=== PATIENT | female | born 1945 | race Caucasian/White ===

== ENCOUNTER 2024-07-12 16:56 | Inpatient (IN) | payer MEDICARE, MEDICAID, SELFPAY ==
[2024-07-12] VITALS (9 sets, daily range): BP systolic 119–150; BP diastolic 62–81; PULSE 70–94; RESP 16–20; TEMP 36.4–36.6; O2SAT 92–96; BMI 18.0
--- NOTE | 2024-07-12 17:39 | PC.NURSE ---
PT BROUGHT IN BY AMBULANCE AFTER FALL AT HOME. PT WAS WALKING TO RESTROOM AND FELL WHILE WAS HOLDING HER. PT STATES THAT SHE DID HIT THE LEFT SIDE OF HER HEAD AND HIP. PT STATES THAT SHE DOES NOT USE AND ASSISTIVE DECEIVE AT HOME. PT IS ABLE TO MOVE LEGS BUT IS HAVING DIFFICULTY LIFTING LEFT LEG. DR. WALTER IN TO SEE PT.
--- NOTE | 2024-07-12 17:44 | EDRME_ITS ---
Rapid Medical Screening Exam RME Arrival date/time: 07/12/24 16:56 Chief Complaint: Fall Time Seen by Provider: 07/12/24 17:44 Vital signs: Vital Signs Temperature 97.6 F 07/12/24 17:03 Pulse Rate 94 07/12/24 17:03 Respiratory Rate 16 07/12/24 17:03 Blood Pressure 119/72 07/12/24 17:03 Pulse Oximetry (%) 92 L 07/12/24 17:03 Oxygen Delivery Method Nasal Cannula 07/12/24 17:03 Oxygen Flow Rate 2 07/12/24 17:03 RME Narrative: 79-year-old female with history of COPD (3 L home oxygen) who presents to the emergency department for ground-level fall after her legs gave out on her . She did hit her head without loss of consciousness but does complain of left- sided headache and left-sided neck pain. She was not able to get up or ambulate herself afterwards and needed 's assistance with EMS. She denies back pain or chest pain. She denies abdominal pain. She denies hip or leg pain. Focused workup was initiated and full encounter and assessment will be done by the additional provider.
--- NOTE | 2024-07-12 17:46 | XR_ITS ---
Examination: CT brain head without contrast. 2-D sagittal coronal reconstructions Date and time of exam:July 12, 2024 1859 hours INDICATIONS: Ground-level fall today with injury to the head, head pain CTDI: vol (mGy):47.5 DLP: (mGycm):869 Technique: Multiple CT axial sections of the brain have been obtained, 5 mm slice thickness. Contrast has not been administered. 2-D sagittal, coronal reconstructions have been obtained Low dose protocols were performed. One or more of the following dose reduction techniques were used; automated exposure control, adjustment of the mA and/or KV according to patient size, use of iterative reconstruction technique. Findings: No significant ventricular enlargement. Intra-axial or extra-axial hemorrhage density is not seen. No mass effect or midline shift Basal cisterns are not remarkable. Fourth ventricle is midline. Cranial vault intact. Old infarct left cerebellar hemisphere Impression: Negative for acute hemorrhage, mass effect or midline shift
--- NOTE | 2024-07-12 17:46 | EKG_ITS ---
[facility] Test Date: 2024-07-12 Pat Name: CELSO BARBOZA Department: Room: - Gender: Female Clinical Transplant Coordinator: : 1945 Requested By: Javi Bustillo Order Number: [id number] Reading MD: Javi Bustillo Measurements Intervals [place] Rate: 78 P: 64 MD: 159 QRS: -14 QRSD: 100 T: 22 QT: 398 QTc: 454 Interpretive Statements SINUS RHYTHM WITH OCCASIONAL SUPRAVENTRICULAR PREMATURE COMPLEXES ST DEVIATION AND MODERATE T-WAVE ABNORMALITY, CONSIDER LATERAL ISCHEMIA [-0.1+ mV T-WAVE IN I/aVL/V5/V6] Compared to ECG 11/01/2020 18:23:40 T-wave abnormality now present Possible ischemia now present /store/S0/[id number]/ecg/[id number].pdf
--- NOTE | 2024-07-12 17:46 | XR_ITS ---
Examination: CT cervical spine without contrast 2-D sagittal reconstructions 2-D coronal reconstructions 3-D reconstructions. Exam date and time:July 12, 2024 at 1854 hours INDICATIONS: Patient fell today with injury to the neck, neck pain CTDI:vol (mGy) 7.15 DLP: (mGycm) 147 Technique: Multiple 2 mm axial sections of the cervical spine have been obtained. The coronal and sagittal reconstructions have been obtained. 3-D reconstructions have been obtained. Low dose protocols were performed. One or more of the following dose reduction techniques were used; automated exposure control, adjustment of the mA and/or KV according to patient size, use of iterative reconstruction technique. Findings: Axial sections demonstrate intact base of the skull. C1 exhibit satisfactory relationship to the odontoid. No acute cervical vertebral body fracture seen. Alignment posterior spinous processes satisfactory. Impression: No acute cervical fracture. Heavy carotid vascular calcification, consider correlation with carotid Doppler sonography follow-up
--- NOTE | 2024-07-12 17:46 | XR_ITS ---
Examination: AP chest single view Technique one AP portable semiupright chest single view Standing spine: July 12, 2024 at 1757 hours Comparison November 01, 2020 INDICATIONS: Patient fell today with injury to the chest, chest pain FINDINGS: Normal heart size No pneumothorax Accentuation of the bronchovascular markings. Mild prominent central pulmonary arteries Clavicles or ribs appear intact IMPRESSION: No pneumothorax, pulmonary contusion or hemothorax.
[2024-07-12 18:14] LABS: Basophils # (Auto) 0.1 Thou/mm3 (0.0-0.2); Basophils % (Auto) 1 % (0-2.5); Eosinophils # (Auto) 0.1 Thou/mm3 (0.0-0.5); Eosinophils % (Auto) 1 % (0-10); Hematocrit 41.7 % (36.0-46.0); Hemoglobin 14.9 g/dL (12.0-16.0); Immature Granulocytes % (Auto) 0 % (0-0); Immature Granulocytes Auto 0.03 Thou/mm3 (0.00-0.00); Lymphocytes # (Auto) 1.7 Thou/mm3 (1.0-4.8); Lymphocytes % (Auto) 15 % (10-50); Mean Corpuscular HGB Conc 35.7 g/dl (31.0-37.0); Mean Corpuscular Volume 90 fL (80-100); Monocytes # (Auto) 1.3 Thou/mm3 (0.0-0.8); Monocytes % (Auto) 11 % (0-12); Neutrophils # (Auto) 8.5 Thou/mm3 (1.8-7.7); Neutrophils % (Auto) 72 % (37-80); Nucleated Red Blood Cell % 0 /100 WBC (0); Platelet Count 433 Thou/mm3 (140-440); RDW Standard Deviation 54.7 fL (36.4-46.3); Red Blood Count 4.66 Miln/mm3 (4.00-5.20); White Blood Count 11.8 Thou/mm3 (3.6-11.0)
--- NOTE | 2024-07-12 18:35 | PD.EDFALL ---
ED Fall Injury RME/HPI General Chief Complaint: Fall Stated Complaint: FALL Time Seen by Provider: 07/12/24 17:44 Arrival date/time: 07/12/24 16:56 RME / HPI RME / HPI Narrative: 79-year-old female with history of COPD (3 L home oxygen) who presents to the emergency department for ground-level fall after her legs gave out on her . She did hit her head without loss of consciousness but does complain of left-sided headache and left-sided neck pain. She was not able to get up or ambulate herself afterwards and needed 's assistance with EMS. She denies back pain or chest pain. She denies abdominal pain. She denies hip or leg pain. Focused workup was initiated and full encounter and assessment will be done by the additional provider. Related Data Previous Rx's ?Medication ?Instructions ?Recorded albuterol sulfate 2.5 mg/3 mL 2.5 mg (3 mL) inhalation Q4H PRN 10/08/20 (0.083 %) solution for nebulization shortness of breath or wheezing #90 mL doxycycline monohydrate 100 mg 100 mg PO BID #20 caps 11/01/20 capsule prednisone 50 mg tablet 50 mg PO QDAY #5 tabs 11/01/20 Allergies Allergy/AdvReac Type Severity Reaction Status Date / Time No Known Allergies Allergy Verified 07/12/24 17:47 Course Orders Category Date Time Status EKG (ED ONLY) *Do not use* NOW Care 07/12/24 17:[address] cervical spine wo con Stat Exams 07/12/24 17:[address] head/brain wo con Stat Exams 07/12/24 17:46 Ordered EKG (ED Only) Stat Exams 07/12/24 17:46 Draft XR chest 1V Stat Exams 07/12/24 17:46 Taken CBC Stat Lab 07/12/24 18:02 Completed CMP [Comprehensive Metabolic Panel] Stat Lab 07/12/24 18:02 Received Lactate (Lactic Acid) Stat Lab 07/12/24 18:02 Results Troponin I Stat Lab 07/12/24 18:02 Received Urinalysis Stat Lab 07/12/24 17:47 Ordered Vital Signs Vital signs: Vital Signs Temperature 97.6 F 07/12/24 17:03 Pulse Rate 94 07/12/24 17:03 Respiratory Rate 16 07/12/24 17:03 Blood Pressure 119/72 07/12/24 17:03 Pulse Oximetry (%) 92 L 07/12/24 17:03 Oxygen Delivery Method Nasal Cannula 07/12/24 17:03 Oxygen Flow Rate 2 07/12/24 17:03 Discharge Plan Prescriptions/Referrals Prescriptions/Med Rec: No Action doxycycline monohydrate 100 mg capsule 100 mg PO BID Qty: 20 0RF prednisone 50 mg tablet 50 mg PO QDAY Qty: 5 0RF albuterol sulfate 2.5 mg /3 mL (0.083 %) solution for nebulization 2.5 mg inhalation Q4H PRN (Reason: shortness of breath or wheezing) Qty: 90 2RF Patient/Caregiver Discharge Instructions Print Language: Syriac
--- NOTE | 2024-07-12 18:38 | PD.EDFALL ---
ED Fall Injury RME/HPI General Chief Complaint: Altered Mental Status Stated Complaint: FALL Time Seen by Provider: 07/12/24 17:44 Source: EMS Arrival date/time: 07/12/24 16:56 Mode of arrival: EMS Limitations: no limitations RME / HPI RME / HPI Narrative: 79-year-old female with history of COPD (3 L home oxygen) who presents to the emergency department for ground-level fall after her legs gave out on her . She did hit her head without loss of consciousness but does complain of left-sided headache and left-sided neck pain. She was not able to get up or ambulate herself afterwards and needed 's assistance with EMS. She denies back pain or chest pain. She denies abdominal pain. She denies hip or leg pain. Focused workup was initiated and full encounter and assessment will be done by the additional provider. Dr. Hernandez?s Main ED Evaluation: The patient is a 79-year-old female with a medical history significant for asthma, COPD, and enrollment in hospice care for the past three years, who was brought to the emergency department via EMS following a fall at home. According to the patient and her , the event began earlier today when the patient experienced weakness in her left leg. She first noted difficulty after attempting to use the restroom, where she was unable to rise from a seated position due to this weakness. Her assisted her back to bed without incident at that time. However, when she later needed to use the restroom again, her provided support to help her ambulate. During this attempt, her left leg reportedly gave out, resulting in a fall. The patient struck her head during the fall and now reports a persistent headache localized to the left side of her head, along with left-sided neck pain. She denies any numbness, tingling, or sensory deficits. She also denies any pain or weakness in her right upper extremity. There has been no loss of consciousness reported. The patient?s last known well time is documented as 3:00 PM today. She denies experiencing any chest pain, palpitations, or shortness of breath. Her pain and discomfort appear to be localized to the regions affected by the fall. Stroke alert initiated at 18:44. The patient is enrolled in hospice care, having been under hospice services for the past three years. However, her care plan is not limited to comfort care or end-of-life measures. Related Data Previous Rx's ?Medication ?Instructions ?Recorded albuterol sulfate 2.5 mg/3 mL 2.5 mg (3 mL) inhalation Q4H PRN 10/08/20 (0.083 %) solution for nebulization shortness of breath or wheezing #90 mL aspirin 81 mg tablet,delayed 81 mg PO QDAY #30 tabs 07/15/24 release (Adult Aspirin Regimen) atorvastatin 40 mg tablet (Lipitor) 40 mg PO QPM #30 tabs 07/15/24 cephalexin 500 mg capsule 500 mg PO BID #8 caps 07/15/24 fluticasone propionate 115 2 puff inhalation BID #12 grams 07/15/24 mcg-salmeterol 21 mcg/actuation HFA inhaler (Advair HFA) folic acid 1 mg tablet 1 mg PO QDAY #30 tabs 07/15/24 potassium chloride 10 mEq 10 meq PO QDAY #30 tabs 07/15/24 tablet,extended release prednisone 5 mg tablet See Taper PO TID #91 tabs 07/15/24 sulfasalazine 500 mg tablet 0.5 g PO Q6H #120 tabs 07/15/24 Allergies Allergy/AdvReac Type Severity Reaction Status Date / Time No Known Allergies Allergy Verified 07/12/24 17:47 Review of Systems Review of Systems Systems Reviewed: All systems reviewed, normal except as documented Past Medical History Past Medical History CARDIAC: Negative Cardiac Disorders or Congestive Heart Failure RESPIRATORY: Positive Chronic Obstructive Pulmonary Disease (COPD) and Asthma (COPD) GASTROINTESTINAL: Positive Crohn's Disease GENITOURINARY: Negative Renal Disease (pending results) ENDOCRINE: Negative Diabetes Mellitus Type 1 or Diabetes Mellitus Type 2 HEMATOLOGIC: Negative Sickle Cell Disease OTHER HISTORY: Negative Cancer Surgical History SURGICAL: Positive Hysterectomy and Tubal Ligation Social History SMOKING STATUS: Former smoker SUBSTANCE USE: does not use ED Exam General Limitations: Present no limitations General appearance: Present alert and in no apparent distress Head Head exam: Present atraumatic and other (No palpable bumps, lumps, or midline scar) Eye Eye exam: Present normal appearance, PERRL and EOMI ENT ENT exam: Present normal exam, normal oropharynx and mucous membranes moist Neck Neck exam: Present normal inspection, full ROM and trachea midline Chest Chest inspection: Present normal inspection and symmetric chest wall rise Respiratory Respiratory exam: Present normal lung sounds bilaterally Cardiovascular Cardiovascular exam: Present regular rate, normal rhythm and normal heart sounds Abdominal Exam Abdominal exam: Present soft and normal bowel sounds Extremities Exam Extremities exam: Present normal inspection, full ROM and other (Motor strength is 5/5 in all extremities except for the left leg, where the patient is unable to lift the leg but demonstrates full extension at the ankle.) Back Exam Back exam: Present normal inspection and full ROM Neurological Exam Neurological exam: Present alert, oriented X3, CN II-XII intact and other (No facial droop observed. No dysphasia or aphasia noted; speech is clear and coherent. No sensory deficits to light touch.) Psychiatric Psychiatric exam: Present normal affect and normal mood Skin Skin exam: Present warm, dry, intact and normal color Course Course Course Narrative: CXR is ordered for determining etiology of mild chest pain. Quality Measures none Orders Category Date Time Status COVID-19 Screening Questionnaire NOW Care 07/12/24 21:24 Completed Decision to Admit X1 Care 07/12/24 21:24 Completed EKG (ED ONLY) *Do not use* NOW Care 07/12/24 17:46 Completed In and Out Catheter X1 Care 07/12/24 20:[address] angio stroke protocol Stat Exams 07/12/24 18:[address] cervical spine wo con Stat Exams 07/12/24 17:[address] head/brain wo con Stat Exams 07/12/24 17:46 Completed EKG (ED Only) Stat Exams 07/12/24 17:46 Draft XR chest 1V Stat Exams 07/12/24 17:46 Completed CBC Stat Lab 07/12/24 18:02 Completed CMP [Comprehensive Metabolic Panel] Stat Lab 07/12/24 18:02 Completed Lactate (Lactic Acid) Stat Lab 07/12/24 18:02 Completed Lactic Acid, 3 HR Stat Lab 07/12/24 21:22 Completed Troponin I Stat Lab 07/12/24 18:02 Completed Urinalysis Stat Lab 07/12/24 20:24 Completed Urine Culture Stat Lab 07/12/24 20:24 Completed Aspirin Chew Med 07/12/24 21:23 Discontinued 81 mg PO X1 ONE cefTRIAXone [Rocephin] 1,000 mg Med 07/12/24 21:23 Discontinued Sodium Chloride 0.9% [Ns] 50 ml IV X1 Vital Signs Vital signs: Vital Signs Temperature 97.6 F 07/12/24 17:03 Pulse Rate 94 07/12/24 17:03 Respiratory Rate 16 07/12/24 17:03 Blood Pressure 119/72 07/12/24 17:03 Pulse Oximetry (%) 92 L 07/12/24 17:03 Oxygen Delivery Method Nasal Cannula 07/12/24 17:03 Oxygen Flow Rate 2 07/12/24 17:03 Procedures -ED EKG Interpretation #1: Additional EKG comment: EKG manually interpreted by me on 07/12/2024 at 18:06 hours reveals normal sinus rhythm (NSR) with a heart rate of 78 bpm, no ST depressions, QTc of 454 ms, and no evidence of STEMI. Fall MDM Narrative MDM Narrative:: 79-year-old female with a history of asthma, COPD, and hospice care who presented to the emergency department following a fall at home. The fall was preceded by left leg weakness, causing her to lose balance and strike her head. She reported a persistent left-sided headache and neck pain but denies numbness, tingling, sensory changes, or right upper extremity weakness. Stroke alert was initiated at 18:44. On examination, the patient had full motor strength in all extremities except for the left leg, where she was unable to lift the leg but could extend at the ankle. No facial droop, dysphasia, or aphasia was noted. Sensory examination was normal. Hospitalist Team: Case discussed, including the patient's clinical course, imaging results, teleneurology's recommendations and treatment plan. The hospitalist team has accepted the patient for admission. Scribe Attestation: Juan Ramon Freeman am scribing for and in the presence of Dr. Hernandez. Provider Notation: Although this document has been carefully reviewed, there may still be some phonetic and other typographical errors. These errors are purely grammatical due to imperfections in the software program and should not be construed in any way to compromise the substance of the patient's medical care during this visit. Patient data External records reviewed:: [facility] previous records and EMS form Clinical information provided by:: patient and EMS Social determinants that could affect healthcare access:: none Patient has the following chronic illnesses:: See PMH How is presenting disease/condition affected by chronic disease/condition?: exacerbated by Evaluation data The following diagnostics were reviewed and interpreted by me:: lab results, radiology exam(s) and EKG tracing(s) Lab and/or radiology exams considered but not ordered:: None Interpretation Summary: I personally reviewed the radiology data and agree with the radiologist's interpretation. Examination: AP chest single view Standing spine: July 12, 2024 at 1757 hours Comparison November 01, 2020 INDICATIONS: Patient fell today with injury to the chest, chest pain FINDINGS: Normal heart size No pneumothorax Accentuation of the bronchovascular markings. Mild prominent central pulmonary arteries Clavicles or ribs appear intact IMPRESSION: No pneumothorax, pulmonary contusion or hemothorax. Dictated By: Fidel Gupta MD Examination: CT cervical spine without contrast Exam date and time:July 12, 2024 at 1854 hours INDICATIONS: Patient fell today with injury to the neck, neck pain Findings: Axial sections demonstrate intact base of the skull. C1 exhibit satisfactory relationship to the odontoid. No acute cervical vertebral body fracture seen. Alignment posterior spinous processes satisfactory. Impression: No acute cervical fracture. Heavy carotid vascular calcification, consider correlation with carotid Doppler sonography follow-up Dictated By: Fidel Gupta MD Examination: CT brain head without contrast. Date and time of exam:July 12, 2024 1859 hours INDICATIONS: Ground-level fall today with injury to the head, head pain Findings: No significant ventricular enlargement. Intra-axial or extra-axial hemorrhage density is not seen. No mass effect or midline shift Basal cisterns are not remarkable. Fourth ventricle is midline. Cranial vault intact. Old infarct left cerebellar hemisphere Impression: Negative for acute hemorrhage, mass effect or midline shift Dictated By: Fidel Gupta MD Examination: CTA carotids with intravenous contrast, CTA brain, head with intravenous contrast. Exam date and time: July 12, 2024 9007 hours INDICATIONS: Stroke alert, onset focal neurologic deficit today Findings: Possible septal edema in the lung linton No significant common carotid carotid bifurcation or internal carotid artery stenoses Dominant left vertebral artery with no critical stenoses No cerebral large vessel arterial occlusions, thrombus, dissection or cerebral aneurysm IMPRESSION: No significant neck arterial stenoses No cerebral large vessel arterial occlusions thrombus dissection or cerebral aneurysm Dictated By: Fidel Gupta MD Medications / Prescriptions Medications or Prescriptions considered but not ordered:: None Medication administrations:: Medication Administration History Discontinued Medications Acetaminophen (Acetaminophen 325 Mg Tablet) 650 mg PO Q6H PRN PRN Reason: Fever >101.5 Stop: 08/11/24 22:18 Albuterol/Ipratropium (Albuterol/Ipratropium (Duoneb) Rt Damaris 3 Ml Nebu) 3 ml INH Q4H PRN PRN Reason: SHORTNESS OF BREATH OR WHEEZE Stop: 08/11/24 22:18 Last Admin: 07/14/24 06:17 Dose: 3 ml Documented By: DWIGHT Aspirin (Aspirin 81 Mg Chew) 81 mg PO X1 ONE Stop: 07/12/24 21:24 Last Admin: 07/12/24 22:03 Dose: 81 mg Documented By: ROB Aspirin (Aspirin 325 Mg Tablet) 325 mg PO X1 ONE Stop: 07/12/24 22:38 Last Admin: 07/12/24 23:01 Dose: 325 mg Documented By: CHRYSTAL Aspirin (Aspirin Ec 81 Mg Tabec) 81 mg PO QDAY [facility] Stop: 08/12/24 08:59 Last Admin: 07/15/24 09:34 Dose: 81 mg Documented By: Admin: 07/14/24 08:09 Dose: 81 mg Documented By: Admin: 07/13/24 09:24 Dose: 81 mg Documented By: SHANEKA Atorvastatin Calcium (Atorvastatin Calcium 20 Mg Tablet) 40 mg PO HS [facility] Stop: 08/12/24 20:59 Last Admin: 07/14/24 22:04 Dose: 40 mg Documented By: Admin: 07/13/24 20:46 Dose: 40 mg Documented By: BRANDON Calcium Carbonate (Calcium Carbonate 600 Mg Tablet) 600 mg PO X1 ONE Stop: 07/12/24 22:41 Last Admin: 07/13/24 01:01 Dose: 600 mg Documented By: CHYRSTAL Heparin Sodium (Porcine) (Heparin Sod Inj 5000 Unit/Ml Vial) 5,000 unit SC Q12H [facility] Stop: 07/27/24 08:59 Last Admin: 07/15/24 09:35 Dose: 5,000 unit Documented By: MR Co-signed By: MANASA Admin: 07/14/24 22:04 Dose: 5,000 unit Documented By: RAVINDRA Co-signed By: MARIA ESTHER Admin: 07/14/24 08:11 Dose: 5,000 unit Documented By: TM Co-signed By: YANELI Admin: 07/13/24 20:46 Dose: 5,000 unit Documented By: BRANDON Co-signed By: Admin: 07/13/24 09:28 Dose: 5,000 unit Documented By: SHANEKA Co-signed By: EVER Ceftriaxone Sodium 1,000 mg/ (Sodium Chloride) 50 mls @ 100 mls/hr IV X1 ONE Stop: 07/12/24 21:52 Last Admin: 07/12/24 22:03 Dose: 100 mls/hr Documented By: KG Ceftriaxone Sodium/Dextrose (Rocephin/D5w 1gm Iv Premix) 50 mls @ 100 mls/hr IV HS ZI Stop: 07/20/24 20:59 Last Admin: 07/14/24 22:03 Dose: 100 mls/hr Documented By: Infusion: 07/13/24 21:17 Dose: Infused Documented By: Admin: 07/13/24 20:47 Dose: 100 mls/hr Documented By: BRANDON Potassium Chloride (Kcl Ivpb) 10 meq in 100 mls @ 100 mls/hr IV Q1H ZI Stop: 07/13/24 02:26 Last Admin: 07/13/24 02:46 Dose: Not Given Documented By: BRANDON Non-Admin Reason: Discontinued Admin: 07/13/24 02:46 Dose: Not Given Documented By: BRANDON Non-Admin Reason: Discontinued Admin: 07/13/24 02:46 Dose: Not Given Documented By: BRANDON Non-Admin Reason: Discontinued Lactated Ringer's (Lactated Ringers) 500 mls @ 50 mls/hr IV .Q10H ZI Stop: 07/13/24 01:40 Last Admin: 07/13/24 02:12 Dose: Not Given Documented By: LB Non-Admin Reason: Discontinued Magnesium Sulfate (Magnesium Sulfate Ivpb) 4 gm in 50 mls @ 12.5 mls/hr IV X1 ONE Stop: 07/13/24 04:15 Last Admin: 07/13/24 01:01 Dose: 12.5 mls/hr Documented By: CHRYSTAL Lactated Ringer's (Lactated Ringers) 1,000 mls @ 50 mls/hr IV .Q20H ONE Stop: 07/13/24 22:07 Last Admin: 07/13/24 02:12 Dose: 50 mls/hr Documented By: CHRYSTAL Potassium Chloride (Kcl Ivpb) 10 meq in 100 mls @ 100 mls/hr IV Q1H ZI Stop: 07/13/24 11:42 Last Admin: 07/13/24 20:32 Dose: Not Given Documented By: BRANDON Non-Admin Reason: Discontinued Potassium Phosphate 22.5 mmol/ (Sodium Chloride) 507.5 mls @ 82.778 mls/hr IV X1 ONE Stop: 07/13/24 13:55 Last Infusion: 07/13/24 18:14 Dose: Infused Documented By: Admin: 07/13/24 09:23 Dose: 82.778 mls/hr Documented By: SHANKEA Potassium Chloride (Kcl Ivpb) 10 meq in 100 mls @ 100 mls/hr IV Q1H ZI Stop: 07/13/24 23:59 Last Admin: 07/13/24 20:32 Dose: Not Given Documented By: BRANDON Non-Admin Reason: Discontinued Lactobacillus Rhamnosus (Lactobacillus Rhamnosus 1 Cap) 1 cap PO BID ZI Stop: 08/13/24 20:59 Last Admin: 07/15/24 09:35 Dose: 1 cap Documented By: Admin: 07/14/24 22:04 Dose: 1 cap Documented By: RAVINDRA Methylprednisolone Sodium Succinate (Methylprednisolone Sod Succ 40 Mg Vial) 40 mg IVP Q12HR ZI Stop: 07/20/24 20:29 Last Admin: 07/15/24 09:34 Dose: 40 mg Documented By: Admin: 07/14/24 22:03 Dose: 40 mg Documented By: Admin: 07/14/24 08:09 Dose: 40 mg Documented By: Admin: 07/13/24 20:46 Dose: 40 mg Documented By: BRANDON Potassium Chloride (Potassium Chloride 10% 20 Meq/15 Ml Udc) 40 meq PO X1 ONE Stop: 07/12/24 22:28 Last Admin: 07/12/24 22:55 Dose: 40 meq Documented By: CHRYSTAL Potassium Chloride (Potassium Chloride 10% 20 Meq/15 Ml Udc) 20 meq PO X1 ONE Stop: 07/13/24 00:16 Last Admin: 07/13/24 02:46 Dose: Not Given Documented By: BRANDON Non-Admin Reason: Discontinued Potassium Chloride (Potassium Chloride 10% 20 Meq/15 Ml Udc) 40 meq PO X1 ONE Stop: 07/13/24 00:39 Last Admin: 07/13/24 00:59 Dose: 40 meq Documented By: CHRYSTAL Potassium Chloride (Potassium Chloride 20 Meq Tabcr) 40 meq PO X1 ONE Stop: 07/13/24 01:31 Last Admin: 07/13/24 02:18 Dose: 40 meq Documented By: CHRYSTAL Potassium Chloride (Potassium Chloride 20 Meq Tabcr) 40 meq PO X1 ONE Stop: 07/13/24 03:01 Last Admin: 07/13/24 03:42 Dose: 40 meq Documented By: BRANDON Potassium Chloride (Potassium Chloride 10% 20 Meq/15 Ml Udc) 40 meq PO X1 ONE Stop: 07/13/24 16:09 Last Admin: 07/13/24 16:18 Dose: 40 meq Documented By: SHANEKA Potassium Chloride (Potassium Chloride 20 Meq Tabcr) 40 meq PO X1 ONE Stop: 07/13/24 16:09 Last Admin: 07/13/24 16:19 Dose: 40 meq Documented By: SHANEKA Potassium Chloride (Potassium Chloride 20 Meq Tabcr) 40 meq PO X1 ONE Stop: 07/13/24 20:01 Last Admin: 07/13/24 20:46 Dose: 40 meq Documented By: BRANDON Potassium Chloride (Potassium Chloride 20 Meq Tabcr) 40 meq PO X1 ONE Stop: 07/13/24 22:31 Last Admin: 07/13/24 22:25 Dose: 40 meq Documented By: BRANDON Potassium Chloride (Potassium Chloride 20 Meq Tabcr) 40 meq PO X1 ONE Stop: 07/15/24 09:49 Last Admin: 07/15/24 10:17 Dose: 40 meq Documented By: Potassium Phos/Sodium Phos ([facility] 1 Packet (1.5 Gm)) 1 packet PO X1 ONE Stop: 07/13/24 00:17 Last Admin: 07/13/24 01:00 Dose: 1 packet Documented By: CHRYSTAL Fluticasone/Salmeterol (Fluticasone/Salmeterol 100/50 14 Dose Inh) 1 puff INH BIDRT ZI Stop: 08/11/24 22:44 Last Admin: 07/15/24 06:28 Dose: 1 puff Documented By: Admin: 07/14/24 18:47 Dose: 1 puff Documented By: Admin: 07/14/24 06:08 Dose: 1 puff Documented By: Admin: 07/13/24 19:26 Dose: Not Given Documented By: AH Non-Admin Reason: Medication Not Available Comments: pharmacy contacted, medication to be delivered before next scheduled treatment. Admin: 07/13/24 11:34 Dose: Not Given Documented By: EA Non-Admin Reason: Manual Charge by Anesthesia Admin: 07/12/24 22:58 Dose: Not Given Documented By: NE Non-Admin Reason: Medication Not Available Sulfasalazine (Sulfasalazine 500 Mg Tablet) 1,000 mg PO BID ZI Stop: 08/12/24 20:59 Last Admin: 07/15/24 09:34 Dose: 1,000 mg Documented By: Admin: 07/14/24 22:04 Dose: 1,000 mg Documented By: Admin: 07/14/24 08:09 Dose: 1,000 mg Documented By: Admin: 07/13/24 20:46 Dose: 1,000 mg Documented By: VR As above, if any Consultations Consultation(s) initiated? (list below): Yes Consultation #1 (Physician, Specialty, Details): Case discussed with Teleneurology, Dr. Yusra Zaman. Based on the clinical presentation, per Dr. 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 However, a small cortical stroke could not be entirely ruled out at this time. A CT head was reviewed and showed no evidence of acute hemorrhage or core infarction. Given that the patient?s last known well time exceeded the 4.5-hour window, she is not a candidate for thrombolytic therapy (tPA). Dr. Zaman recommends initiating or continuing aspirin 325 mg daily to reduce further risk of ischemic progression and admission for close monitoring. Time: 19:38 Consultation #2 (Physician, Specialty, Details): Hospitalist team made aware of the patient?s HPI, PMHx, lab and/or radiology results. Treatment plan was discussed. Accepts patient for admission. Time: 21:22 Diagnosis Fall Differential Diagnosis: other (Stroke, UTI, Hip pain, Musculoskeletal pain, DVT) Most likely diagnosis given after review of the tests above:: See clinical impression Admission Indicated Admission indicated?: indicated Admission Request Was there a request for admission?: Yes Admission Attestation Admission request attestation: Discussed case with [] from Hospitalist service regarding admission. Discussed patients ED course, exam findings, labs, and radiology results. The Hospitalist [agrees,declines] to accept the patient for admission. Disposition Plan Disposition Plan: Admit Critical Care Time Critical Care Time Critical Care Time: Yes Total Critical Care Time (min.): 45 Attestation: The high probability of sudden, clinically significant deterioration in the patient?s condition required the highest level of my preparedness to intervene urgently. ? The services I provided to this patient were to treat and/or prevent clinically significant deterioration. Services included the following: chart data review, reviewing nursing notes and/or old charts, documentation time, professional services consultant collaboration regarding findings and treatment options, medication orders and management, direct patient care, vital sign assessments and ordering, interpreting and reviewing diagnostic studies and lab tests. ? Aggregate critical care time includes only time during which I was engaged in work directly related to the patient?s care, as described above, whether at bedside or elsewhere in the Emergency Department. It did not include time spent performing other reported procedures or the services of residents, students, nurses or physician assistants. Discharge Plan Plan Patient Disposition: Admit Acute Care w/in Hospital Patient condition on transfer: Stable Problem List Clinical Impression: Fall, Headache
--- NOTE | 2024-07-12 18:46 | XR_ITS ---
Examination: CTA carotids with intravenous contrast CTA brain, head with intravenous contrast. 2-D sagittal, coronal reconstructions. 3-D reconstructions. Exam date and time: July 12, 2024 9007 hours INDICATIONS: Stroke alert, onset focal neurologic deficit today CTDI: vol (mGy) 14.4 DLP: (mGycm) 441 Technique: Multiple CTA axial brain, head carotid images post intravenous contrast injection 75 cc, [id number]. 2-D sagittal, coronal reconstructions. 3-D reconstructions, 3-D post processing including vascular maximum intensity projection images. Low dose protocols were performed. One or more of the following dose reduction techniques were used; automated exposure control, adjustment of the mA and/or KV according to patient size, use of iterative reconstruction technique. Findings: Possible septal edema in the lung linton No significant common carotid carotid bifurcation or internal carotid artery stenoses Dominant left vertebral artery with no critical stenoses No cerebral large vessel arterial occlusions, thrombus, dissection or cerebral aneurysm IMPRESSION: No significant neck arterial stenoses No cerebral large vessel arterial occlusions thrombus dissection or cerebral aneurysm
[2024-07-12 18:55] LABS: Alanine Aminotransferase 11 U/L (10-49); Albumin, Serum 3.3 gm/dL (3.4-4.8); Albumin/Globulin Ratio 0.9 (1.2-2.2); Alkaline Phosphatase 117 U/L (46-116); Anion Gap 15 (7-16); Aspartate Amino Transferase 19 U/L (0-34); BUN/Creatinine Ratio 4 Ratio (12-20); Bilirubin,Total 0.5 mg/dL (0.3-1.2); Blood Urea Nitrogen < 5 mg/dL (9-23); Calcium 7.4 mg/dL (8.3-10.6); Carbon Dioxide 18.7 mMol/L (20.0-31.0); Chloride 107 mMol/L (98-107); Creatinine (Component) 1.4 mg/dL (0.6-1.3); Estimated Creatinine Clearance 26.8 mL/min (>60); Globulin 3.8 gm/dL (2.3-3.5); Glucose 124 mg/dL (74-106); Osmolality,Calculated 279 (275-295); Sodium 141 mMol/L (136-145); Total Protein 7.1 gm/dL (5.7-8.2); Troponin I < 0.020 ng/mL (0.0-0.045); eGFR 38 See Note
[2024-07-12 18:57] LABS: Potassium 2.1 mMol/L (3.4-5.1)
--- NOTE | 2024-07-12 19:30 | PC.NURSE ---
Pt back from ct-scan, Dr. Yusra Zaman, neurologist, interviewed and assessed pt via tele neuro website.
--- NOTE | 2024-07-12 19:37 | ESCONSULT_ITS ---
Tele Neuro Consultation Consultation Date 07/12/24 Most Recent Vital Signs Last Vital Signs Temp 97.9 F 07/12/24 18:32 Pulse 77 07/12/24 18:32 Resp 16 07/12/24 18:32 BP 129/67 07/12/24 18:32 Pulse Ox 93 L 07/12/24 18:32 O2 Del Method Nasal Cannula 07/12/24 18:32 O2 Flow Rate 2 07/12/24 18:32 Consultation Narrative [facility] Tele[facility]rology Consult [facility] Patient Name:???Fina Welch Date of :???1945 Identification Number:??? Date of Service:???07/12/2024 18:46:26 Diagnosis:?M62.81 - Generalized Muscle Weakness Impression: ?1. The patient does appear to have weakness of the left arm and leg without any other deficit. 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 CT of the head is unremarkable, do not appreciate any large vessel occlusion on review of CTA head and neck, however, official read is pending. As long as official read is in agreement that no large vessel occlusion is present, she will require admission for MRI of the brain, transthoracic echocardiogram, fasting lipid panel, hemoglobin A1c. Recommend starting full strength aspirin. Our recommendations are outlined below. Recommendations: ? Stroke/Telemetry Floor ? Neuro Checks ? Bedside Swallow Eval ? DVT Prophylaxis ? IV Fluids, Normal Saline ? Head of Bed 30 Degrees ? Euglycemia and Avoid Hyperthermia (PRN Acetaminophen) ? Initiate or continue Aspirin 325 MG daily ? Antihypertensives PRN if Blood pressure is greater than 220/120 or there is a concern for End organ damage/contraindications for permissive HTN. If blood pressure is greater than 220/120 give labetalol PO or IV or Vasotec IV with a goal of 15% reduction in BP during the first 24 hours. Sign Out: ? Discussed with Emergency Department Provider Advanced Imaging: CTA Head and Neck Completed. LVO:No Patient in not a candidate for FESTUS Metrics: Last Known Well: 07/12/2024 10:00:00 Dispatch Time: 07/12/2024 18:46:26 Arrival Time: 07/12/2024 16:56:00 Initial Response Time: 07/12/2024 18:55:57Symptoms: weakness, fall. Initial patient interaction: 07/12/2024 19:18:03 NIHSS Assessment Completed: 07/12/2024 19:28:00Patient is not a candidate for Thrombolytic. Thrombolytic Medical Decision: 07/12/2024 19:28:00Patient was not deemed candidate for Thrombolytic because of following reasons: LKW outside 4.[address] head showed no acute hemorrhage or acute core infarct. Primary Provider Notified of Diagnostic Impression and Management Plan on: 07/12/2024 19:38:23 History of Present Illness:Patient is a 79 year old Female. Patient was brought by EMS for symptoms of weakness, fall. The patient is a 79 year old woman with a history of COPD on 3L home oxygen presenting after a GLF when her legs gave out on her. She did not hit her head, no LOC. She does have a left sided headache and neck pain. Her K is low at 2.1 with a normal sodium. Her creatinine is 1.4 up from baseline 1.3. The patient reports that she walked to go to the bathroom around 10 AM and she felt like she couldn't get up off the toilet. She is a difficult historian, however , she is weaker on the left side, which she states is new today. She has no history of stroke does not take any medications or have any chronic health conditions with the exception of her COPD. She is technically on hospice, but is been on hospice for 3 years and is not comfort care. Past Medical History: Other PMH:? COPD, crohns disease in remission Medications: No Anticoagulant use? No Antiplatelet use Reviewed EMR for current medications Allergies:? Reviewed Social History: Drug Use: No Family History: There is no family history of premature cerebrovascular disease pertinent to this consultation ROS : 14 Points Review of Systems was performed and was negative except mentioned in HPI. Past Surgical History: There Is No Surgical History Contributory To Today?s Visit Examination: BP(129/67),?Pulse(77),?Blood Glucose(124) 1A: Level of Consciousness - Alert; keenly responsive?+ 0 1B: Ask Month and Age - Both Questions Right?+ 0 1C: Blink Eyes & Squeeze Hands - Performs Both Tasks?+ 0 2: Test Horizontal Extraocular Movements - Normal?+ 0 3: Test Visual Munguia - No Visual Loss?+ 0 4: Test Facial Palsy (Use Grimace if Obtunded) - Normal symmetry?+ 0 5A: Test Left Arm Motor Drift - Drift, but doesn't hit bed?+ 1 5B: Test Right Arm Motor Drift - No Drift for 10 Seconds?+ 0 6A: Test Left Leg Motor Drift - No Effort Against Baldwin?+ 3 6B: Test Right Leg Motor Drift - No Drift for 5 Seconds?+ 0 7: Test Limb Ataxia (FNF/Heel-Mckeon) - No Ataxia?+ 0 8: Test Sensation - Normal; No sensory loss?+ 0 9: Test Language/Aphasia - Normal; No aphasia?+ 0 10: Test Dysarthria - Normal?+ 0 11: Test Extinction/Inattention - No abnormality?+ 0 NIHSS Score:?4 Pre-Morbid Modified Hermilo Scale:2 Points = Slight disability; unable to carry out all previous activities, but able to look after own affairs without assistance Spoke with :?ED This consult was conducted in real time using interactive audio and video technology. Patient was informed of the technology being used for this visit and agreed to proceed. Patient located in hospital and provider located at home/office setting. Patient is being evaluated for possible acute neurologic impairment and high probability of imminent or life-threatening deterioration. I spent total of 35 minutes providing care to this patient, including time for face to face visit via telemedicine, review of medical records, imaging studies and discussion of findings with providers, the patient and/or family. Dr Yusra Zaman [facility] For Inpatient follow-up with [facility] physician please call [facility] at . As we are not an outpatient service for any post hospital discharge needs please contact the hospital for assistance. If you have any questions for the [facility] physicians or need to re consult for clinical or diagnostic changes please contact us via [facility] at .
[2024-07-12 20:34] LABS: Collection Type, Urine Clean Catch
[2024-07-12 20:53] LABS: Bacteria,Urine Rare; Bilirubin,Urine Negative (Negative); Blood,Urine Trace (Negative); Clarity,Urine Turbid (Clear/Hazy); Color,Urine Yellow (Lt Yel-Yel); Glucose, Urine Negative (Negative); Ketones,Urine Negative (Negative); Leukocyte Esterase,Urine Positive (Negative); Nitrite,Urine Positive (Negative); Protein,Urine 1+ (Neg - Trace); RBC,Urine 4 /hpf (0-3); Squamous Epithelial Cell,Urine < 1 /hpf (0-5); Urobilinogen,Urine Negative mg/dL (0.0-1.0); WBC,Urine 199 /hpf (0-5)
[2024-07-12 21:08] LABS: Reflex Lactate? Y
[2024-07-12 21:31] LABS: Lactic Acid, 3 HR 1.5 mMol/L (0.4-2.0)
[2024-07-12] MEDS: ASPIRIN 81 MG CHEW PO (22:03)
[2024-07-12] MEDS: POTASSIUM CHLORIDE 10% 20 MEQ/15 ML UDC 40 MEQ PO (22:55)
--- NOTE | 2024-07-12 22:56 | ESHP_ITS ---
Documentation for date of: 07/12/24 HPI History of Present Illness Chief complaint: Left-sided weakness History of present illness: Ms. Welch is a 79-year-old female with history of COPD (3L home oxygen), Crohn's disease, hypertension and dizziness who presented to [facility] on 07/12/2024 with chief complaint of ground-level fall after her legs gave out on her . Patient reports hitting her head on the left side, according to the patient she was on the toilet and she could not get up, her helped her to the bed, after that she was able to ambulate again, yet again after a while she complained of significant weakness, has been was able to assist her, yet she reported falling down hitting her head. Patient currently endorses weakness in left arm and left leg, has no other deficits, denies of any stroke in the past, reports that the left-sided weakness is new. Patient reports history of chronic dizziness in the past. Patient denies any loss of consciousness, seizure-like activity. Otherwise patient does complain of 8 bowel movements a day for the last year, reports loose stools, endorsed that she was diagnosed with Crohn disease in 2005, denies taking any medication currently, denies following up with GI specialist currently. Of note patient's potassium on admission 2.1, possible GI loss. Does complain of poor appetite, reports drinking enough water. Patient reports increased frequency of urination, some discomfort while urination and endorses a history of UTIs in the past. Patient has been on hospice for the last 3 years for COPD after she was discharged from hospital. Denies any respiratory distress currently. Does use inhaler as needed at home. ED Course: ED Vitals: On presentation BP 119/72, pulse 94, respiratory rate 16, temp 97.6, O2 sat 92 on 2 L nasal cannula ED Labs:ED labs significant for WBC 11.8, neutrophil 8.5 sodium 141, potassium 2.1, bicarb 18.7, creatinine 1.4, GFR 38, glucose 124, lactate 3.0, calcium 8, alk phos 117, albumin 3.3, globulin 3.8 UA significant for nitrate positive, leukocyte esterase positive, bacteria rare. ED Imaging:CT cervical spine significant for heavy carotid vascular calcification chest x-ray negative CT head negative CTA head and neck negative for large vessel occlusion ED Treatment:Patient was given aspirin 81 mg x 1, ceftriaxone x 1 in ED. teleneuro consulted in ED, stroke alert was called. Patient admitted for further workup for left-sided weakness, CVA workup. Review of Systems Review of Systems Narrative Review of Systems: ROS: -CONSTITUTIONAL: Denies weight loss, fever and chills. Complains of dizziness. -HEENT: Denies changes in vision and hearing. -RESPIRATORY: Denies SOB and cough. Positive for COPD, on 3 L oxygen at home. -CV: Denies palpitations and Chest Pain. -GI: Denies abdominal pain, nausea, vomiting,constipation and positive for diarrhea. -: Positive for dysuria and increased urinary frequency -MSK: Positive for of left-sided weakness. -SKIN: Denies rash and pruritus. -NEUROLOGICAL: Denies headache and syncope. -PSYCHIATRIC: Denies recent changes in mood. Denies anxiety and depression. Past Medical History Past Medical History Comments PMH COMMENT: PMH: Positive for COPD, hypertension, Crohn's disease, dizziness PSHx: Positive for appendectomy, gallbladder surgery, exploratory laparotomy, ?bowel resection Allergies: No known allergies Social history: -Smoking: Positive for heavy smoking in past, quit 7 years ago -Alcohol Use: Positive for alcohol use in past, reports no current alcohol use -Illicit Drug Use: Denies -Occupation: Retired -Martial Status: lives with , independent ADLs denies using cane/walker Family History: Positive for Crohn's disease in sister Exam Vital Signs Temp Pulse Resp BP Pulse Ox O2 Del Method O2 Flow Rate 97.8 F 73 19 150/81 H 94 L Nasal Cannula 2 07/12/24 19:39 07/12/24 22:52 07/12/24 22:52 07/12/24 22:00 07/12/24 22:52 07/12/24 21:00 07/12/24 22:52 Narrative Exam Physical Exam General: Awake and in no acute distress. Conversational and non-toxic appearing. HEENT: Normocephalic, atraumatic, mucous membranes dry. Heart: Regular rate and rhythm, no murmurs. Lungs: Mild wheezing, no crackles. Abdomen: Soft, nondistended, nontender, positive bowel sounds. Neurologic: Alert and oriented x3, decreased movement, weakness noted in left upper and lower extremity Extremities: No edema. Skin: No rash or ecchymoses. Results: Labs 07/12/24 18:02 07/12/24 21:22 Labs: Short CBC 07/12/24 Range/Units 18:02 WBC 11.8 H (3.6-11.0) Thou/mm3 Hgb 14.9 (12.0-16.0) g/dL Hct 41.7 (36.0-46.0) % Plt Count 433 (140-440) Thou/mm3 BMP 07/12/24 18:02 Sodium 141 Potassium 2.1 L* Chloride 107 Carbon Dioxide 18.7 L BUN < 5 L Creatinine 1.4 H Glucose 124 H Calcium 7.4 L Cardiac Enzymes 07/12/24 Range/Units 18:02 Troponin I < 0.020 (0.0-0.045) ng/mL Liver Function 07/12/24 Range/Units 18:02 Total Bilirubin 0.5 (0.3-1.2) mg/dL AST 19 (0-34) U/L ALT 11 (10-49) U/L Alkaline Phosphatase 117 H (46-116) U/L Albumin 3.3 L (3.4-4.8) gm/dL Urine 07/12/24 Range/Units 20:24 Urine Color Yellow (Lt Yel-Yel) Urine Clarity Turbid A (Clear/Hazy) Urine pH 6.0 (5.0-7.0) Ur Specific Edison 1.030 (1.001-1.035) Urine Protein 1+ A (Neg - Trace) Urine Glucose (UA) Negative (Negative) Quality Measures Quality Measures none Advance care planning discussed with:: patient Medications Home Medications and Allergies Allergies Allergy/AdvReac Type Severity Reaction Status Date / Time No Known Allergies Allergy Verified 07/12/24 17:47 Visit Medications Acetaminophen (Acetaminophen 325 Mg Tablet) 650 mg PO Q6H PRN PRN Reason: Fever >101.5 Stop: 08/11/24 22:18 Albuterol/Ipratropium (Albuterol/Ipratropium (Duoneb) Rt Damaris 3 Ml Nebu) 3 ml INH Q4H PRN PRN Reason: SHORTNESS OF BREATH OR WHEEZE Stop: 08/11/24 22:18 Aspirin (Aspirin Ec 81 Mg Tabec) 81 mg PO QDAY ZI Stop: 08/12/24 08:59 Heparin Sodium (Porcine) (Heparin Sod Inj 5000 Unit/Ml Vial) 5,000 unit SC Q12H [facility] Stop: 07/27/24 08:59 Ceftriaxone Sodium/Dextrose (Rocephin/D5w 1gm Iv Premix) 50 mls @ 100 mls/hr IV QDAY [facility] Stop: 07/19/24 22:25 Potassium Chloride (Kcl Ivpb) 10 meq in 100 mls @ 100 mls/hr IV Q1H [facility] Stop: 07/13/24 02:26 Lactated Ringer's (Lactated Ringers) 500 mls @ 50 mls/hr IV .Q10H [facility] Stop: 07/13/24 08:39 Fluticasone/Salmeterol (Fluticasone/Salmeterol 100/50 14 Dose Inh) 1 puff INH BIDRT [facility] Stop: 08/11/24 22:44 Discontinued Medications Aspirin (Aspirin 81 Mg Chew) 81 mg PO X1 ONE Stop: 07/12/24 21:24 Last Admin: 07/12/24 22:03 Dose: 81 mg Aspirin (Aspirin 325 Mg Tablet) 325 mg PO X1 ONE Stop: 07/12/24 22:38 Calcium Carbonate (Calcium Carbonate 600 Mg Tablet) 600 mg PO X1 ONE Stop: 07/12/24 22:41 Ceftriaxone Sodium 1,000 mg/ (Sodium Chloride) 50 mls @ 100 mls/hr IV X1 ONE Stop: 07/12/24 21:52 Last Admin: 07/12/24 22:03 Dose: 100 mls/hr Potassium Chloride (Potassium Chloride 10% 20 Meq/15 Ml Udc) 40 meq PO X1 ONE Stop: 07/12/24 22:28 Assessment & Plan Plan Assessment and plan: Summary: Ms. Welch is a 79-year-old female with history of COPD (3L home oxygen), Crohn's disease, hypertension and dizziness who presented to [facility] on 07/12/2024 with chief complaint of ground-level fall after her legs gave out on her . Patient admitted for further workup for left- sided weakness, CVA workup. # Left-sided weakness # Dizziness # CVA workup # Status post ground-level fall Patient endorsed that her legs gave out, currently complains of left-sided weakness, has no history of stroke or residual deficits. Patient independent in ADLs denies using any walker/cane. Patient denies seizure-like activity, loss of consciousness, did endorse hitting head. On physical exam left-sided weakness noted, teleneuro was consulted in ED NIHSS 4. Plan: -Aspirin 325 mg x 1, aspirin 81 mg in a.m. -Ordered MRI stroke protocol -Ordered echo with bubble study -Consulted neurology, appreciate recommendations -Bedside nurse swallow screen -Neurochecks every 4 hours -Head of bed 30 degrees -Referral to speech therapy -Referral to physical therapy -Permissive hypertension for 24 hours -Tylenol as needed -Follow lipid panel, A1c, TSH, free T4 in a.m. # Urinary tract infection #?DAVID on CKD # Leukocytosis # Lactic acidosis Patient complains of urinary discomfort, increased frequency On admission creatinine 1.4, GFR 38, lactate 3.0. UA significant for nitrate positive, leukocyte esterase positive, bacteria rare. Plan: -IV ceftriaxone daily -Follow urine culture -500 cc LR, 50 cc/h -Follow renal panel in a.m. -Avoid nephrotoxic meds -Renally dose medications # Crohn's disease # Hypokalemia Patient reports history of Crohn's disease, reports being diagnosed in 2005, currently not on any medications, does not follow GI specialist currently Reports average 8 bowel movements every day, small, no blood. Patient's potassium 2.1 on presentation in ED Plan: -Replace potassium -Currently monitor if patient acute exacerbation, consider IV steroids /- rectal steroids -Ordered ESR CRP in a.m. -Consulted GI, appreciate recommendations -Ordered stool culture, fecal calprotectin, stool WBC -Patient has minimally elevated alk phos, monitor, concern of PSC -Ordered hep panel, follow-up with GI, consider TBT, TPMT prior to initiation of therapy # Electrolyte abnormalities # Hypomagnesemia # Hypophosphatemia # Hypocalcemia -Correct and replace electrolytes as needed #COPD Patient has extensive history of smoking in the past, was diagnosed with COPD. Patient on 3 L oxygen at home Plan: -Fluticasone/salmeterol twice daily -Supplemental oxygen as needed -DuoNeb every 4 hours as needed #Hypertension Patient has history of hypertension, on amlodipine at home Plan: -Permissive hypertension for 24 hours, will use labetalol as needed if more than 220/120 DVT prophylaxis: Heparin every 12 hours GI prophylaxis: Not indicated Diet: N.p.o., pending nurse swallow screen Lines: Peripheral IV Code status: DNR/DNI Case discussed with Attending Dr. Jarrett. Deisy Fuentes PGY1 Disclaimer: This note was dictated by speech recognition. Minor errors in operations support analyst may be present due to voice recognition software. Attending Provider Attestation/Addendum I attest that I was physically present for the evaluation, physical examination, lab and imaging review of the patient with the residents. I discussed the case with the residents and agree with the findings and plans of care as documented above. Patient is a 79 years old female with past medical history of COPD on 3 L home nasal cannula, Crohn's disease, hypertension and dizziness who presented to the ED with complaint of ground-level fall due to lower limb weakness. While using the restroom, patient was unable to sit up from her commode getting help from her . Patient stated that she had hit her head on the left side. At bedside, patient stated her symptoms are better but still has weakness on her left arm and left leg. Denies any numbness or tingling sensation. Denies any slurring of his speech or facial droop. Patient also stated that she has been having frequent urination. She usually have 8 loose bowel movements per day, small amounts. She denied following with GI and does not take any medication for her Crohn's disease. Patient is also on hospice care, she had difficulty breathing about 3 years back due to her COPD when she was started on the hospice care and has been being followed by them until now. In the ED, vital signs are stable, saturating well on 2 L nasal cannula. Lab results showed WBC of 11.8, potassium 2.1, creatinine 1.4, lactate 3.0. Urinalysis was significant for positive nitrite, leukocyte esterase, 199 WBCs and rare bacteria. Head CT was done which was negative for acute hemorrhage, mass effect or midline shift. CTA head and neck did not show any significant neck arterial stenosis. Cervical spine CT was negative for acute fractures. Chest x-ray was negative for acute disease. Teleneuro was consulted for stroke alert. Started patient on aspirin, statin. Ordered MRI, echocardiography, neurochecks, PT, ST. We will start IV Rocephin for UTI. Gentle IV hydration for possible DAVID versus DAVID on CKD. We will also obtain GI consult regarding Crohn's disease as patient have been having multiple bowel movements with electrolyte imbalances. We will replete her electrolytes as needed. Started patient on supplemental oxygen and DuoNebs for her COPD. Discussed in detail about her CODE STATUS, hospice care and goals of care, patient stated she would like aggressive medical management but wished to be DNR/DNI. Andrew Jarrett MD
[2024-07-12] MEDS: Aspirin 325 MG TABLET PO (23:01)
[2024-07-12 23:13] LABS: Albumin, Serum 3.4 gm/dL (3.4-4.8); Anion Gap 14 (7-16); BUN/Creatinine Ratio 4 Ratio (12-20); Blood Urea Nitrogen < 5 mg/dL (9-23); Calcium 7.5 mg/dL (8.3-10.6); Carbon Dioxide 19.2 mMol/L (20.0-31.0); Chloride 108 mMol/L (98-107); Creatinine (Component) 1.2 mg/dL (0.6-1.3); Estimated Creatinine Clearance 31.3 mL/min (>60); Glucose 93 mg/dL (74-106); Osmolality,Calculated 278 (275-295); Phosphorous 1.9 mg/dL (2.4-5.1); Sodium 141 mMol/L (136-145); eGFR 46 See Note
[2024-07-12 23:16] LABS: Potassium 1.9 mMol/L (3.4-5.1)
[2024-07-12 23:35] LABS: Magnesium 1.5 mg/dL (1.6-2.6)
[2024-07-13] VITALS (11 sets, daily range): BP systolic 114–139; BP diastolic 62–88; PULSE 69–98; RESP 14–118; TEMP 36.1–37; O2SAT 92–98; BMI 12.0
--- NOTE | 2024-07-13 | XR_ITS ---
Examinations: MRI Brain without intravenous contrast. MRA brain without intravenous contrast. MRA carotids without intravenous contrast 3-D vascular reconstructions Date and time of exam: July 13, 2024 0824 hours INDICATIONS: Stroke alert April 11, 2025, onset focal neurologic deficit including left arm left leg weakness Technique: Multiple axial and sagittal images of the brain have been obtained MRA brain carotid images without contrast obtained, including 3-D postprocessing, vascular maximum intensity projection images Findings: Sellaturcica is not enlarged. The optic chiasm and infundibular stalk are not remarkable. Prepontine and interpeduncular cisterns are not enlarged. No localized enlargement of the medulla or lexi. Fourth ventricle and cerebellar tonsils normal in position. Subacute hemorrhage is not seen. Fourth ventricle is midline. Mass in the cerebellopontine angle region is not evident. 7th and 8th nerve complexes exhibits symmetry. Globes are symmetrical with no retro-orbital mass. Increased white matter signal prominent Diffusion-weighted images demonstrate no focus of restricted diffusion Mass-effect upon the ventricular system is not identified. MRA carotid images no significant carotid stenoses. MRA brain images no large vessel occlusions Impression: Negative for acute hemorrhage mass effect or midline shift No acute infarct Old infarct left cerebellar hemisphere Prominent chronic microvascular white matter change
--- NOTE | 2024-07-13 00:39 | PC.NURSE ---
Pt refused IV potassium Dr. Byrd informed. Meds potassium, K phos, mag not available, nrsg supp informed.
[2024-07-13] MEDS: POTASSIUM CHLORIDE 10% 20 MEQ/15 ML UDC 40 MEQ PO ×2 (00:59→16:18)
[2024-07-13] MEDS: NAPH,KPH MBDB 1 PACKET (1.5 GM) PO (01:00)
[2024-07-13] MEDS: CALCIUM CARBONATE 600 MG TABLET PO (01:01)
[2024-07-13] MEDS: Magnesium Sulfate 4 GM Ivpb 4 GM/50 ML BAG IV (01:01)
--- NOTE | 2024-07-13 01:50 | PC.NURSE ---
Pt had bm. pt was changed, new hilda, new kate. redness on coccyx, RN made aware. barrier foam put in place. pt turned to left side.
[2024-07-13] MEDS: RINGERS LACTATED 1000 ML 1,000 ML 50 ML IV (02:12)
[2024-07-13] MEDS: POTASSIUM CHLORIDE 20 mEq TABCR 40 MEQ PO ×5 (02:18→22:25)
[2024-07-13 06:23] LABS: Basophils # (Auto) 0.1 Thou/mm3 (0.0-0.2); Basophils % (Auto) 1 % (0-2.5); Eosinophils # (Auto) 0.2 Thou/mm3 (0.0-0.5); Eosinophils % (Auto) 1 % (0-10); Hematocrit 42.3 % (36.0-46.0); Hemoglobin 15.4 g/dL (12.0-16.0); Immature Granulocytes % (Auto) 0 % (0-0); Immature Granulocytes Auto 0.06 Thou/mm3 (0.00-0.00); Lymphocytes # (Auto) 1.9 Thou/mm3 (1.0-4.8); Lymphocytes % (Auto) 12 % (10-50); Mean Corpuscular HGB Conc 36.4 g/dl (31.0-37.0); Mean Corpuscular Hemoglobin 32.3 pg (25.0-35.0); Mean Corpuscular Volume 89 fL (80-100); Monocytes # (Auto) 1.5 Thou/mm3 (0.0-0.8); Monocytes % (Auto) 10 % (0-12); Neutrophils # (Auto) 11.4 Thou/mm3 (1.8-7.7); Neutrophils % (Auto) 75 % (37-80); Nucleated Red Blood Cell % 0 /100 WBC (0); Platelet Count 415 Thou/mm3 (140-440); RDW Standard Deviation 53.1 fL (36.4-46.3); Red Blood Count 4.77 Miln/mm3 (4.00-5.20); White Blood Count 15.2 Thou/mm3 (3.6-11.0)
[2024-07-13 06:28] LABS: INR 1.1 (0.9-1.3); Partial Thromboplastin Time 24.8 Seconds (22.0-36.0); Prothrombin Time 11.5 Seconds (9.0-12.2)
[2024-07-13 06:48] LABS: Stool for WBCs Negative (Negative)
[2024-07-13 06:49] LABS: Sed Rate (ESR) 26 mm/hr (0-30)
[2024-07-13 06:52] LABS: Glucose Estimated Average 111 mg/dL (80-131); Hemoglobin A1C 5.5 % Hgb (4.8-6.0)
[2024-07-13 07:06] LABS: Alanine Aminotransferase 9 U/L (10-49); Albumin, Serum 3.3 gm/dL (3.4-4.8); Albumin/Globulin Ratio 0.9 (1.2-2.2); Alkaline Phosphatase 119 U/L (46-116); Anion Gap 15 (7-16); Aspartate Amino Transferase 26 U/L (0-34); BUN/Creatinine Ratio 4 Ratio (12-20); Bilirubin,Total 0.5 mg/dL (0.3-1.2); Blood Urea Nitrogen < 5 mg/dL (9-23); Calcium 8.1 mg/dL (8.3-10.6); Calcium (Corrected) 8.7 mg/dL (8.5-10.1); Chloride 110 mMol/L (98-107); Creatinine (Component) 1.2 mg/dL (0.6-1.3); Estimated Creatinine Clearance 31.3 mL/min (>60); Free T4 (Free Thyroxine) 1.18 ng/dL (0.89-1.76); Globulin 3.6 gm/dL (2.3-3.5); Glucose 105 mg/dL (74-106); Magnesium 2.8 mg/dL (1.6-2.6); Osmolality,Calculated 285 (275-295); Phosphorous 1.8 mg/dL (2.4-5.1); Sodium 145 mMol/L (136-145); Thyroid Stimulating Hormone 4.99 uIU/mL (0.55-4.78); Total Protein 6.9 gm/dL (5.7-8.2); eGFR 46 See Note
[2024-07-13 07:21] LABS: C-Reactive Protein 0.6 mg/dL (0.0-0.9); Cholesterol 99 mg/dL (132-200); HDL Cholesterol 50 mg/dL (40-60); LDL Cholesterol,Calculated 33 mg/dL (0-130); Triglycerides 80 mg/dL (30-150)
[2024-07-13 07:35] LABS: Hepatitis A Antibody IgM Non Reactive (Non React); Hepatitis B Core Antibody IgM Non Reactive (Non React); Hepatitis B Surface Antigen Non Reactive (Non React); Hepatitis C Antibody Non Reactive (Non React)
[2024-07-13 07:37] LABS: Potassium 2.6 mMol/L (3.4-5.1)
[2024-07-13] MEDS: POTASSIUM PHOS 22.5 MMOL in SODIUM CHLORIDE 0.9% 500 ML 500 ML 82.778 MMOL IV (09:23)
[2024-07-13] MEDS: ASPIRIN EC 81 MG TABEC PO (09:24)
[2024-07-13] MEDS: HEPARIN SOD INJ 5000 UNIT/ML VIAL SC ×2 (09:28→20:46)
--- NOTE | 2024-07-13 11:54 | ESPR_ITS ---
<Statement entered by Gomez Kerns MD - 07/13/24 17:17> Senior Resident Attestation: I supervised/discussed management plan with international sales manager physician Dr. Pollack, and was involved in the care of this patient. I personally saw and examined the patient and discussed the assessment and plan with the entire medicine team, including my attending. I agree with the assessment and plan as documented. Patient does not have any new neurological deficits. Ongoing stroke workup including head CT, CTA angio and MRI of the brain are negative for acute stroke. Patient's care was discussed with attending physician, Dr. Graham. Gomez Kerns MD PGY-2. Documentation for date of: 07/13/24 Subjective Subjective Interval history: 07/13/2024: Patient examined at bedside today. No acute overnight events. Patient reports that she has never had the symptoms before including her weakness. She denies having any stroke history. Does endorse that she has been having poor oral intake and has been on hospice for 3 years. She is only been eating chicken bone broth for a while. She is on home oxygen 3 L. Says that she only had hypokalemia 1 time, and will refuse to have IV potassium. She does endorse having 5-8 bowel movements a day due to her Crohn's disease. No other complaints at this time. Exam Vital Signs Temp Pulse Resp BP Pulse Ox O2 Del Method O2 Flow Rate 98.6 F 80 118 H 131/77 H 93 L Room Air 3 07/13/24 08:00 07/13/24 08:10 07/13/24 08:10 07/13/24 08:00 07/13/24 08:10 07/13/24 08:00 07/13/24 08:10 Narrative Exam General: AAOx3, NAD, lying down in bed, pt appears to have some hair thinning, looks older than she is, anorexic HEENT: Dry mucous membranes, conjunctiva clear, EOMI, PERRLA pupillary reflex intact bilaterally Cardiovascular: S1, S2, radial pulses +2 bilat, RRR Pulmonary: + wheezing heard in both lung [place], on 2L NC GI: No tenderness to light or deep palpitation, no guarding, rigidity, rebound tenderness or distension Extremities: No presence of trace or pitting edema in lower extremities bilaterally, dorsalis pedis pulses +2 bilaterally Neuro: AAOx3, patient appears to have some left-sided motor weakness in upper and lower extremity, possible resting tremor Psych: Cooperative Objective Labs 07/13/24 05:33 07/13/24 11:58 Labs: Laboratory Results - last 24 hr 07/12/24 07/12/24 07/12/24 18:02 20:24 21:22 WBC 11.8 H RBC 4.66 Hgb 14.9 Hct 41.7 MCV 90 MCH 32.0 MCHC 35.7 RDW Std Deviation 54.7 H Plt Count 433 Neut % (Auto) 72 Lymph % (Auto) 15 [place] % (Auto) 11 Eos % (Auto) 1 Baso % (Auto) 1 Neut # (Auto) 8.5 H Lymph # (Auto) 1.7 [place] # (Auto) 1.3 H Eos # (Auto) 0.1 Baso # (Auto) 0.1 Immature Gran # (Auto) 0.03 H Absolute Nucleated RBC 0.00 Immature Gran % 0 Nucleated RBC % 0 ESR PT INR APTT Sodium 141 141 Potassium 2.1 L* 1.9 L* Chloride 107 108 H Carbon Dioxide 18.7 L 19.2 L Anion Gap 15 14 BUN < 5 L < 5 L Creatinine 1.4 H 1.2 Estim Creat Clear Calc 26.8 L 31.3 L eGFR 38 L 46 L BUN/Creatinine Ratio 4 L 4 L Glucose [address] Glu mg/dL Hemoglobin A1c Calculated Osmolality 279 278 Lactic Acid 3.0 H 1.5 Calcium 7.4 L 7.5 L Corrected Calcium 8.0 L 8.0 L Phosphorus 1.9 L Magnesium 1.5 L Total Bilirubin 0.5 AST 19 ALT 11 Alkaline Phosphatase 117 H Troponin I < 0.020 C-Reactive Prot, Quant Total Protein 7.1 Albumin 3.3 L 3.4 Globulin 3.8 H Albumin/Globulin Ratio 0.9 L Triglycerides Cholesterol LDL Cholesterol, Calc HDL Cholesterol Cholesterol/HDL Ratio TSH Free T4 Ur Collection Type Clean Catch Urine Color Yellow Urine Clarity Turbid A Urine pH 6.0 Ur Specific [place] 1.030 Urine Protein 1+ A Urine Glucose (UA) Negative Urine Ketones Negative Urine Blood Trace Urine Nitrite Positive Urine Bilirubin Negative Urine Urobilinogen (Auto) Negative Ur Leukocyte Esterase Positive Urine RBC 4 H Urine WBC 199 H Ur Squamous Epith Cells < 1 Urine Bacteria Rare Stool for White Cells Hepatitis A IgM Ab Hep Bs Antigen Hep B Core IgM Ab Hepatitis C Antibody 07/13/24 07/13/24 03:10 05:33 WBC 15.2 H RBC 4.77 Hgb 15.4 Hct 42.3 MCV 89 MCH 32.3 MCHC 36.4 RDW Std Deviation 53.1 H Plt Count 415 Neut % (Auto) 75 Lymph % (Auto) 12 [place] % (Auto) 10 Eos % (Auto) 1 Baso % (Auto) 1 Neut # (Auto) 11.4 H Lymph # (Auto) 1.9 [place] # (Auto) 1.5 H Eos # (Auto) 0.2 Baso # (Auto) 0.1 Immature Gran # (Auto) 0.06 H Absolute Nucleated RBC 0.00 Immature Gran % 0 Nucleated RBC % 0 ESR 26 PT 11.5 INR 1.1 APTT 24.8 Sodium 145 Potassium 2.6 L* D Chloride 110 H Carbon Dioxide 20.0 Anion Gap 15 BUN < 5 L Creatinine 1.2 Estim Creat Clear Calc 31.3 L eGFR 46 L BUN/Creatinine Ratio 4 L Glucose [address] Glu mg/dL 111 Hemoglobin A1c 5.5 Calculated Osmolality 285 Lactic Acid Calcium 8.1 L Corrected Calcium 8.7 Phosphorus 1.8 L Magnesium 2.8 H Total Bilirubin 0.5 AST 26 ALT 9 L Alkaline Phosphatase 119 H Troponin I C-Reactive Prot, Quant 0.6 Total Protein 6.9 Albumin 3.3 L Globulin 3.6 H Albumin/Globulin Ratio 0.9 L Triglycerides 80 Cholesterol 99 L LDL Cholesterol, Calc 33 HDL Cholesterol 50 Cholesterol/HDL Ratio 2.0 L TSH 4.99 H Free T4 1.18 Ur Collection Type Urine Color Urine Clarity Urine pH Ur Specific [place] Urine Protein Urine Glucose (UA) Urine Ketones Urine Blood Urine Nitrite Urine Bilirubin Urine Urobilinogen (Auto) Ur Leukocyte Esterase Urine RBC Urine WBC Ur Squamous Epith Cells Urine Bacteria Stool for White Cells Negative Hepatitis A IgM Ab Non Reactive Hep Bs Antigen Non Reactive Hep B Core IgM Ab Non Reactive Hepatitis C Antibody Non Reactive Quality Measures Quality Measures none Advance care planning discussed with:: patient Assessment & Plan Assessment Current Active Medications: Generic Name Dose Route Start Last Admin Trade Name Freq PRN Reason Stop Dose Admin Acetaminophen 650 mg 07/12/24 22:19 Acetaminophen 325 Mg Tablet PO 08/11/24 22:18 Q6H PRN Fever >101.5 Albuterol/Ipratropium 3 ml 07/12/24 22:19 Albuterol/Ipratropium (Duoneb) Rt [place] 3 Ml Nebu INH 08/11/24 22:18 Q4H PRN SHORTNESS OF BREATH OR WHEEZE Aspirin 81 mg 07/13/24 09:00 07/13/24 09:24 Aspirin Ec 81 Mg Tabec PO 08/12/24 08:59 81 mg QDAY ZI Administration Atorvastatin Calcium 40 mg 07/13/24 21:00 Atorvastatin Calcium 20 Mg Tablet PO 08/12/24 20:59 HS ZI Heparin Sodium (Porcine) 5,000 unit 07/13/24 09:00 07/13/24 09:28 Heparin Sod Inj 5000 Unit/Ml Vial SC 07/27/24 08:59 5,000 unit Q12H ZI Administration Ceftriaxone Sodium/Dextrose 50 mls @ 100 mls/hr 07/13/24 21:00 Rocephin/D5w 1gm Iv Premix IV 07/20/24 20:59 HS ZI Lactated Ringer's 1,000 mls @ 50 mls/hr 07/13/24 02:08 07/13/24 02:12 Lactated Ringers IV 07/13/24 22:07 50 mls/hr .Q20H ONE Administration Potassium Phosphate 22.5 mmol/ 507.5 mls @ 82.778 mls/hr 07/13/24 07:48 07/13/24 09:23 Sodium Chloride IV 07/13/24 13:55 82.778 mls/hr X1 ONE Administration Fluticasone/Salmeterol 1 puff 07/12/24 22:45 07/13/24 11:34 Fluticasone/Salmeterol 100/50 14 Dose Inh INH 08/11/24 22:44 Not Given BIDRT ZI Plan Assessment Ms. Welch is a 79-year-old female with history of COPD (3L home oxygen), Crohn's disease, hypertension and dizziness who presented to [facility] on 07/12/[facility]24 with chief complaint of ground-level fall after her legs gave out on her . Patient admitted for further workup for left-sided weakness, CVA workup. 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 Stroke recrudescence #Status post ground-level fall Patient endorsed that her legs gave out, currently complains of left-sided weakness, has no history of stroke or residual deficits. Patient independent in ADLs denies using any walker/cane. Patient denies seizure-like activity, loss of consciousness, did endorse hitting head. On physical exam left-sided weakness noted, teleneuro was consulted in ED NIHSS 4. MRI shows old infarct left cerebral hemisphere, however no acute mass effect, hemorrhage or ischemia Patient did deny having a stroke before, however TIA may still be in the differential Patient may also be experiencing stroke recrudescence as patient is having infection and electrolyte abnormalities Considering patient's weakness is one-sided this may not all be due to electrolyte abnormalities including hypokalemia TSH 4.94, T41.18, total cholesterol 99, LDL 33 A1c 5.5 Plan: -Continue aspirin 81 ?Continue with Lipitor 40 mg ?Follow-up echo with bubble study -Consulted neurology, appreciate recommendations -Bedside nurse swallow screen -Neurochecks every 4 hours -Head of bed 30 degrees -Referral to speech therapy -Referral to physical therapy -Tylenol as needed #Symptomatic hypokalemia #Electrolyte abnormalities #Hypophosphatemia Patient does endorse poor oral intake Will need to reassess if patient is having other electrolyte abnormality for other reasons and GI losses as patient's potassium was low as 1.9 Plan: ? Repleting with oral phosphate as patient will not take IV phosphate ? Gave potassium phosphate ? Follow-up with renal panel # Urinary tract infection #?DAVID on CKD # Leukocytosis # Lactic acidosis Patient complains of urinary discomfort, increased frequency On admission creatinine 1.4, GFR 38, lactate 3.0. UA significant for nitrate positive, leukocyte esterase positive, bacteria rare. Cr 1.2 today Encourage oral intake Plan: -IV ceftriaxone daily -Follow urine culture # Hx of Crohn's disease Patient reports history of Crohn's disease, reports being diagnosed in 2005, currently not on any medications, does not follow GI specialist currently Reports average 8 bowel movements every day, small, no blood. ESR CRP unremarkable Will consider for patient to be on sulfasalazine or mesalamine and oral budesonide at some point Plan: ?Consulted GI, appreciate recommendations ?Follow-up stool culture, fecal calprotectin, stool WBC ?Follow-up C. difficile #Hx of COPD Patient has extensive history of smoking in the past, was diagnosed with COPD. Patient on 3 L oxygen at home Plan: -Continue Advair twice daily -Supplemental oxygen as needed -DuoNeb every 4 hours as needed #Hypertension Patient has history of hypertension, on amlodipine at home Plan: -Will resume home blood pressure medicines after first 24 hours #Health Maintenance Disposition: Telemetry DVT prophylaxis: Heparin every 12 hours GI prophylaxis: None indicated at this time Diet: Cardiac CODE STATUS:DNR/DNI Patient seen and care discussed with my senior resident, Dr. Kerns , and my attending physician, Dr. Santos Pollack, PGY-1
[2024-07-13 12:38] LABS: Albumin, Serum 3.3 gm/dL (3.4-4.8); Anion Gap 13 (7-16); BUN/Creatinine Ratio 5 Ratio (12-20); Blood Urea Nitrogen < 5 mg/dL (9-23); Calcium 7.7 mg/dL (8.3-10.6); Calcium (Corrected) 8.3 mg/dL (8.5-10.1); Carbon Dioxide 20.1 mMol/L (20.0-31.0); Chloride 109 mMol/L (98-107); Estimated Creatinine Clearance 37.6 mL/min (>60); Glucose 117 mg/dL (74-106); Osmolality,Calculated 281 (275-295); Phosphorous 3.2 mg/dL (2.4-5.1); Sodium 142 mMol/L (136-145); eGFR 57 See Note
[2024-07-13 12:40] LABS: Potassium 2.6 mMol/L (3.4-5.1)
[2024-07-13 19:29] LABS: Albumin, Serum 3.1 gm/dL (3.4-4.8); Anion Gap 13 (7-16); BUN/Creatinine Ratio 5 Ratio (12-20); Blood Urea Nitrogen < 5 mg/dL (9-23); Calcium 7.3 mg/dL (8.3-10.6); Carbon Dioxide 20.3 mMol/L (20.0-31.0); Chloride 109 mMol/L (98-107); Estimated Creatinine Clearance 41.8 mL/min (>60); Glucose 127 mg/dL (74-106); Osmolality,Calculated 282 (275-295); Phosphorous 4.2 mg/dL (2.4-5.1); Potassium 3.2 mMol/L (3.4-5.1); Sodium 142 mMol/L (136-145); eGFR 57 See Note
--- NOTE | 2024-07-13 20:25 | ESCONSULT_ITS ---
HPI Data of Consult Requesting Physician: Yasmin Graham MD Primary Care Provider: Physician No Primary/Family Consult Narrative Reason for consult: Chronic persistent diarrhea History of present illness: 79-year-old female admitted with a ground-level fall and left-sided motor weakness I been consulted for multiple stool at least 6-8 stools a day she has been living on chicken broth and not been able to eat She has a history of COPD on 3 L nasal cannula essential hypertension previous CVA and now left-sided motor weakness hypokalemia and hypomagnesemia Her potassium was 2.6 on admission which is come up to 3.2 WBC count was 15.2 with a hemoglobin hematocrit 15.4 and 42.3 Platelet count was 4 and 15,000 She is not on any medication for the Crohn's ileitis that she has history of 2005 patient had a bowel obstruction requiring exploratory laparotomy with resection of a part of the small intestine and colon according to her and pathological diagnosis was Crohn's disease Surgery was done by Dr. Polo Patient is also postcholecystectomy cc:: cc: Yasmin Graham MD Review of Systems Review of Systems Systems Reviewed: All systems reviewed, normal except as documented Past Medical History Surgical History OTHER SURGICAL HX: As in the history of present illness Meds Home Medications and Allergies Allergies Allergy/AdvReac Type Severity Reaction Status Date / Time No Known Allergies Allergy Verified 07/12/24 17:47 Exam Vital Signs Temp Pulse Resp BP Pulse Ox O2 Del Method O2 Flow Rate 98.5 F 89 21 H 139/81 H 94 L Nasal Cannula 3 07/13/24 16:00 07/13/24 19:27 07/13/24 19:27 07/13/24 16:00 07/13/24 19:27 07/13/24 16:00 07/13/24 19:27 Constitutional Comments: Chronically ill-appearing Routine Respiratory Exam Comments: Normal to auscultation Routine Abdominal Exam Comments: Soft nontender positive bowel sounds Results Labs 07/13/24 05:33 07/13/24 19:03 Labs: Short CBC 07/13/24 Range/Units 05:33 WBC 15.2 H (3.6-11.0) Thou/mm3 Hgb 15.4 (12.0-16.0) g/dL Hct 42.3 (36.0-46.0) % Plt Count 415 (140-440) Thou/mm3 BMP 07/12/24 07/13/24 07/13/24 21:22 05:33 11:58 Sodium 141 145 142 Potassium 1.9 L* 2.6 L* D 2.6 L* Chloride 108 H 110 H 109 H Carbon Dioxide 19.2 L 20.0 20.1 BUN < 5 L < 5 L < 5 L Creatinine 1.2 1.2 1.0 Glucose 93 105 117 H Calcium 7.5 L 8.1 L 7.7 L 07/13/24 19:03 Sodium 142 Potassium 3.2 L D Chloride 109 H Carbon Dioxide 20.3 BUN < 5 L Creatinine 1.0 Glucose 127 H Calcium 7.3 L Liver Function 07/12/24 07/13/24 07/13/24 Range/Units 21:22 05:33 11:58 Total Bilirubin 0.5 (0.3-1.2) mg/dL AST 26 (0-34) U/L ALT 9 L (10-49) U/L Alkaline Phosphatase 119 H (46-116) U/L Albumin 3.4 3.3 L 3.3 L (3.4-4.8) gm/dL 07/13/24 Range/Units 19:03 Total Bilirubin (0.3-1.2) mg/dL AST (0-34) U/L ALT (10-49) U/L Alkaline Phosphatase (46-116) U/L Albumin 3.1 L (3.4-4.8) gm/dL Urine 07/12/24 Range/Units 20:24 Urine Color Yellow (Lt Yel-Yel) Urine Clarity Turbid A (Clear/Hazy) Urine pH 6.0 (5.0-7.0) Ur Specific [place] 1.030 (1.001-1.035) Urine Protein 1+ A (Neg - Trace) Urine Glucose (UA) Negative (Negative) Assessment and Plan Additional Assessment & Plan Additional Plan: # Chronic persistent diarrhea most likely acute exacerbation of the underlying inflammatory process as per history although no imaging studies available Suggestions ANCA antibody Stool culture and sensitivity WBC stain and fecal calprotectin CRP Sulfasalazine 500 mg 2 tablets twice daily gradually increase to 8 tablets a day Solu-Medrol 40 mg IV push every 12 till the stool cultures are back Should have a colonoscopy examination prior to discharge Will follow the patient Other medical problems include # COPD on 3 L nasal cannula # Essential hypertension # Left sided motor weakness new onset # Gross electrolyte abnormalities Thank you very much for the opportunity to participate in the care of this patient
[2024-07-13] MEDS: ATORVASTATIN CALCIUM 20 MG TABLET 40 MG PO (20:46)
[2024-07-13] MEDS: sulfaSALAzine 500 MG TABLET 1000 MG PO (20:46)
[2024-07-13] MEDS: cefTRIAXone/D5w 1gm IV premix 50 ML IV (20:47)
[2024-07-13 23:42] LABS: Stool for WBCs None Seen (Negative)
--- NOTE | 2024-07-13 23:52 | PD.NEUROPROG ---
Documentation for date of: 07/13/24 Subjective Subjective Interval history: Patient was seen earlier today. No new symptoms reported. Able to move both upper and lower extremities. Exam - Neurology Vital Signs Temp Pulse Resp BP Pulse Ox O2 Del Method O2 Flow Rate 97.6 F 97 20 137/76 H 98 Nasal Cannula 3 07/13/24 20:00 07/13/24 20:00 07/13/24 20:00 07/13/24 20:00 07/13/24 20:00 07/13/24 20:00 07/13/24 20:00 Narrative Exam GENERAL APPEARANCE: Well hydrated, well-nourished in no acute distress. HEENT: Normocephalic, atraumatic, extraocular movements intact. Pupils: Equal reacting to light and accommodation NECK: Supple, no JVD or bruits. CARDIOVASULAR: Heart: S1, S2 heard, regular without S3-S4 or murmur no rubs or gallops. LUNGS/CHEST: Clear to auscultation bilaterally. No rails, rhonchi, or wheezing. Normal inspection. ABDOMEN: Soft, nontender, with normal bowel sounds. No pulsatile masses. No rebound, rigidity, or guarding. Normal inspection and palpation. EXTREMITIES: Normal inspection and palpation. No edema, clubbing or cyanosis. SKIN: Warm and dry without rashes. Normal inspection. MUSCULOSKELETAL: No cervical, thoracic, lumbar or midline bony tenderness. Normal inspection. NEURO: Alert, awake and oriented x3. Cranial nerves: II through XII grossly intact. Speech and language: Normal with no dysarthria or dysphasia. Motor system: Tone and bulk: Normal: Strength: 5 out of 5 in all 4 extremities; No pronator drift noted. Deep tendon reflexes: 2+ bilaterally symmetrical. Plantar reflex: Downgoing bilaterally. Sensory system: Intact to all modalities of sensation bilaterally. Coordination: Intact to ojqakp-lunp-iytol and qchl-nvas-qsvp test bilaterally. No ataxia, no dysmetria, or dysdiadochokinesia noted. No intention tremors noted. Gait: Not tested. no signs of meningeal irritation noted. PSYCHIATRIC: Normal mood and affect. Objective Labs 07/14/24 02:35 07/14/24 02:35 Labs: Laboratory Results - last 24 hr 07/13/24 07/13/24 07/13/24 03:10 05:33 11:58 WBC 15.2 H RBC 4.77 Hgb 15.4 Hct 42.3 MCV 89 MCH 32.3 MCHC 36.4 RDW Std Deviation 53.1 H Plt Count 415 Neut % (Auto) 75 Lymph % (Auto) 12 [place] % (Auto) 10 Eos % (Auto) 1 Baso % (Auto) 1 Neut # (Auto) 11.4 H Lymph # (Auto) 1.9 [place] # (Auto) 1.5 H Eos # (Auto) 0.2 Baso # (Auto) 0.1 Immature Gran # (Auto) 0.06 H Absolute Nucleated RBC 0.00 Immature Gran % 0 Nucleated RBC % 0 ESR 26 PT 11.5 INR 1.1 APTT 24.8 Sodium 145 142 Potassium 2.6 L* D 2.6 L* Chloride 110 H 109 H Carbon Dioxide 20.0 20.1 Anion Gap 15 13 BUN < 5 L < 5 L Creatinine 1.2 1.0 Estim Creat Clear Calc 31.3 L 37.6 L eGFR 46 L 57 L BUN/Creatinine Ratio 4 L 5 L Glucose [address] Glu mg/dL 111 Hemoglobin A1c 5.5 Calculated Osmolality 285 281 Calcium 8.1 L 7.7 L Corrected Calcium 8.7 8.3 L Phosphorus 1.8 L 3.2 Magnesium 2.8 H Total Bilirubin 0.5 AST 26 ALT 9 L Alkaline Phosphatase 119 H C-Reactive Prot, Quant 0.6 Total Protein 6.9 Albumin 3.3 L 3.3 L Globulin 3.6 H Albumin/Globulin Ratio 0.9 L Triglycerides 80 Cholesterol 99 L LDL Cholesterol, Calc 33 HDL Cholesterol 50 Cholesterol/HDL Ratio 2.0 L TSH 4.99 H Free T4 1.18 Stool for White Cells Negative Hepatitis A IgM Ab Non Reactive Hep Bs Antigen Non Reactive Hep B Core IgM Ab Non Reactive Hepatitis C Antibody Non Reactive 07/13/24 07/13/24 19:03 20:40 WBC RBC Hgb Hct MCV MCH MCHC RDW Std Deviation Plt Count Neut % (Auto) Lymph % (Auto) [place] % (Auto) Eos % (Auto) Baso % (Auto) Neut # (Auto) Lymph # (Auto) [place] # (Auto) Eos # (Auto) Baso # (Auto) Immature Gran # (Auto) Absolute Nucleated RBC Immature Gran % Nucleated RBC % ESR PT INR APTT Sodium 142 Potassium 3.2 L D Chloride 109 H Carbon Dioxide 20.3 Anion Gap 13 BUN < 5 L Creatinine 1.0 Estim Creat Clear Calc 41.8 L eGFR 57 L BUN/Creatinine Ratio 5 L Glucose [address] Glu mg/dL Hemoglobin A1c Calculated Osmolality 282 Calcium 7.3 L Corrected Calcium 8.0 L Phosphorus 4.2 Magnesium Total Bilirubin AST ALT Alkaline Phosphatase C-Reactive Prot, Quant Total Protein Albumin 3.1 L Globulin Albumin/Globulin Ratio Triglycerides Cholesterol LDL Cholesterol, Calc HDL Cholesterol Cholesterol/HDL Ratio TSH Free T4 Stool for White Cells None Seen Hepatitis A IgM Ab Hep Bs Antigen Hep B Core IgM Ab Hepatitis C Antibody Assessment & Plan Assessment and plan (1) Left-sided weakness: Status: Acute Assessment and plan: Which led to a fall Reassurance given to the patient regarding the negative workup including CT CT angiogram and MRI brain. Recommend physical therapy evaluation for ambulation safety. 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 Should improve with correction of metabolic factors. Continue with aspirin. With rest of the workup.
[2024-07-14] VITALS (10 sets, daily range): BP systolic 116–144; BP diastolic 71–96; PULSE 83–120; RESP 13–24; TEMP 36.2–36.8; O2SAT 92–97; BMI 13.0
[2024-07-14 02:57] LABS: Basophils # (Auto) 0.1 Thou/mm3 (0.0-0.2); Basophils % (Auto) 1 % (0-2.5); Eosinophils % (Auto) 0 % (0-10); Hematocrit 41.5 % (36.0-46.0); Hemoglobin 15.2 g/dL (12.0-16.0); Immature Granulocytes % (Auto) 0 % (0-0); Immature Granulocytes Auto 0.03 Thou/mm3 (0.00-0.00); Lymphocytes # (Auto) 1.1 Thou/mm3 (1.0-4.8); Lymphocytes % (Auto) 10 % (10-50); Mean Corpuscular HGB Conc 36.6 g/dl (31.0-37.0); Mean Corpuscular Hemoglobin 32.1 pg (25.0-35.0); Mean Corpuscular Volume 88 fL (80-100); Monocytes # (Auto) 0.1 Thou/mm3 (0.0-0.8); Monocytes % (Auto) 1 % (0-12); Neutrophils # (Auto) 10.2 Thou/mm3 (1.8-7.7); Neutrophils % (Auto) 89 % (37-80); Nucleated Red Blood Cell % 0 /100 WBC (0); Platelet Count 337 Thou/mm3 (140-440); RDW Standard Deviation 52.7 fL (36.4-46.3); Red Blood Count 4.73 Miln/mm3 (4.00-5.20); White Blood Count 11.5 Thou/mm3 (3.6-11.0)
[2024-07-14 03:18] LABS: Alanine Aminotransferase 11 U/L (10-49); Albumin, Serum 3.4 gm/dL (3.4-4.8); Alkaline Phosphatase 118 U/L (46-116); Anion Gap 13 (7-16); Aspartate Amino Transferase 30 U/L (0-34); BUN/Creatinine Ratio 5 Ratio (12-20); Bilirubin,Total 0.4 mg/dL (0.3-1.2); Blood Urea Nitrogen < 5 mg/dL (9-23); Calcium 7.6 mg/dL (8.3-10.6); Calcium (Corrected) 8.1 mg/dL (8.5-10.1); Carbon Dioxide 19.4 mMol/L (20.0-31.0); Chloride 110 mMol/L (98-107); Estimated Creatinine Clearance 41.8 mL/min (>60); Globulin 3.5 gm/dL (2.3-3.5); Glucose 135 mg/dL (74-106); Osmolality,Calculated 282 (275-295); Phosphorous 3.6 mg/dL (2.4-5.1); Potassium 4.4 mMol/L (3.4-5.1); Sed Rate (ESR) 38 mm/hr (0-30); Sodium 142 mMol/L (136-145); Total Protein 6.9 gm/dL (5.7-8.2); eGFR 57 See Note
[2024-07-14 03:36] LABS: C-Reactive Protein 3.2 mg/dL (0.0-0.9)
[2024-07-14] MEDS: FLUTICASONE/SALMETEROL 100/50 14 DOSE INH 1 PUFF INH ×2 (06:08→18:47)
[2024-07-14] MEDS: ALBUTEROL/IPRATROPIUM (Duoneb) RT SOL 3 ML NEBU INH (06:17)
[2024-07-14] MEDS: sulfaSALAzine 500 MG TABLET 1000 MG PO ×2 (08:09→22:04)
[2024-07-14] MEDS: ASPIRIN EC 81 MG TABEC PO (08:09)
[2024-07-14] MEDS: HEPARIN SOD INJ 5000 UNIT/ML VIAL SC ×2 (08:11→22:04)
--- NOTE | 2024-07-14 09:54 | PC.SS ---
JUNIOR DESIGNER confirmed patient?s alignment with [facility], [place] ([phone]).? JUNIOR DESIGNER to submit hospice referral to upon patient?s discharge from the hospital.
--- NOTE | 2024-07-14 10:06 | ESPR_ITS ---
<Statement entered by Gomez Kerns MD - 07/15/24 11:04> Senior Resident Attestation: I supervised/discussed management plan with corporate strategy intern physician Dr. Pollack, and was involved in the care of this patient. I personally saw and examined the patient and discussed the assessment and plan with the entire medicine team, including my attending. I agree with the assessment and plan as documented. Patient's condition has significantly improved, electrolytes were repleted appropriately. She is planned for discharge tomorrow. Patient's care was discussed with attending physician, Dr. Graham. Gomez Kerns MD PGY-2. Documentation for date of: 07/14/24 Subjective Subjective Interval history: 07/14/2024: Pt examined at bedside. No acute overnight events other than that patient got 80 mill equivalents of potassium and repeat potassium overnight was above 4. Patient reports she is doing well and that her weakness has improved. She says she is able to lift her left leg now. She is still refusing custodial facility and wants home health. She has no chest pain or shortness of breath this time. No other complaints at this time. Had 10 bowel movements yesterday, had 1 bowel movement today. Denies any history of PPI or antibiotic use recently. Exam Vital Signs Temp Pulse Resp BP Pulse Ox O2 Del Method O2 Flow Rate 98.1 F 101 H 24 H 116/85 H 92 L Nasal Cannula 3 07/14/24 08:00 07/14/24 08:00 07/14/24 08:00 07/14/24 08:00 07/14/24 08:00 07/14/24 08:00 07/14/24 08:00 Narrative Exam General: AAOx3, NAD, lying down in bed, pt appears to have some hair thinning, looks older than she is, anorexic HEENT: Dry mucous membranes, conjunctiva clear, EOMI, PERRLA pupillary reflex intact bilaterally Cardiovascular: S1, S2, radial pulses +2 bilat, RRR Pulmonary: + wheezing heard in both lung [place], on 2L NC GI: No tenderness to light or deep palpitation, no guarding, rigidity, rebound tenderness or distension Extremities: No presence of trace or pitting edema in lower extremities bilaterally, dorsalis pedis pulses +2 bilaterally Neuro: AAOx3, no focal or motor deficits at this time, possible resting tremor Psych: Cooperative Objective Labs 07/14/24 02:35 07/14/24 02:35 Labs: Laboratory Results - last 24 hr 07/13/24 07/13/24 07/13/24 11:58 19:03 20:40 WBC RBC Hgb Hct MCV MCH MCHC RDW Std Deviation Plt Count Neut % (Auto) Lymph % (Auto) [place] % (Auto) Eos % (Auto) Baso % (Auto) Neut # (Auto) Lymph # (Auto) [place] # (Auto) Eos # (Auto) Baso # (Auto) Immature Gran # (Auto) Absolute Nucleated RBC Immature Gran % Nucleated RBC % ESR Sodium 142 142 Potassium 2.6 L* 3.2 L D Chloride 109 H 109 H Carbon Dioxide 20.1 20.3 Anion Gap 13 13 BUN < 5 L < 5 L Creatinine 1.0 1.0 Estim Creat Clear Calc 37.6 L 41.8 L eGFR 57 L 57 L BUN/Creatinine Ratio 5 L 5 L Glucose 117 H 127 H Calculated Osmolality 281 282 Calcium 7.7 L 7.3 L Corrected Calcium 8.3 L 8.0 L Phosphorus 3.2 4.2 Magnesium Total Bilirubin AST ALT Alkaline Phosphatase C-Reactive Prot, Quant Total Protein Albumin 3.3 L 3.1 L Globulin Albumin/Globulin Ratio Stool for White Cells None Seen 07/14/24 02:35 WBC 11.5 H RBC 4.73 Hgb 15.2 Hct 41.5 MCV 88 MCH 32.1 MCHC 36.6 RDW Std Deviation 52.7 H Plt Count 337 D Neut % (Auto) 89 H Lymph % (Auto) 10 [place] % (Auto) 1 Eos % (Auto) 0 Baso % (Auto) 1 Neut # (Auto) 10.2 H Lymph # (Auto) 1.1 [place] # (Auto) 0.1 Eos # (Auto) 0.0 Baso # (Auto) 0.1 Immature Gran # (Auto) 0.03 H Absolute Nucleated RBC 0.00 Immature Gran % 0 Nucleated RBC % 0 ESR 38 H Sodium 142 Potassium 4.4 D Chloride 110 H Carbon Dioxide 19.4 L Anion Gap 13 BUN < 5 L Creatinine 1.0 Estim Creat Clear Calc 41.8 L eGFR 57 L BUN/Creatinine Ratio 5 L Glucose 135 H Calculated Osmolality 282 Calcium 7.6 L Corrected Calcium 8.1 L Phosphorus 3.6 Magnesium 2.0 Total Bilirubin 0.4 AST 30 ALT 11 Alkaline Phosphatase 118 H C-Reactive Prot, Quant 3.2 H Total Protein 6.9 Albumin 3.4 Globulin 3.5 Albumin/Globulin Ratio 1.0 L Stool for White Cells Quality Measures Quality Measures none Advance care planning discussed with:: patient Assessment & Plan Assessment Current Active Medications: Generic Name Dose Route Start Last Admin Trade Name Freq PRN Reason Stop Dose Admin Acetaminophen 650 mg 07/12/24 22:19 Acetaminophen 325 Mg Tablet PO 08/11/24 22:18 Q6H PRN Fever >101.5 Albuterol/Ipratropium 3 ml 07/12/24 22:19 07/14/24 06:17 Albuterol/Ipratropium (Duoneb) Rt [place] 3 Ml Nebu INH 08/11/24 22:18 3 ml Q4H PRN Administration SHORTNESS OF BREATH OR WHEEZE Aspirin 81 mg 07/13/24 09:00 07/14/24 08:09 Aspirin Ec 81 Mg Tabec PO 08/12/24 08:59 81 mg QDAY ZI Administration Atorvastatin Calcium 40 mg 07/13/24 21:00 07/13/24 20:46 Atorvastatin Calcium 20 Mg Tablet PO 08/12/24 20:59 40 mg HS ZI Administration Heparin Sodium (Porcine) 5,000 unit 07/13/24 09:00 07/14/24 08:11 Heparin Sod Inj 5000 Unit/Ml Vial SC 07/27/24 08:59 5,000 unit Q12H ZI Administration Ceftriaxone Sodium/Dextrose 50 mls @ 100 mls/hr 07/13/24 21:00 07/13/24 20:47 Rocephin/D5w 1gm Iv Premix IV 07/20/24 20:59 100 mls/hr HS ZI Administration Methylprednisolone Sodium Succinate 40 mg 07/13/24 20:30 07/14/24 08:09 Methylprednisolone Sod Succ 40 Mg Vial IVP 07/20/24 20:29 40 mg Q12HR ZI Administration Fluticasone/Salmeterol 1 puff 07/12/24 22:45 07/14/24 06:08 Fluticasone/Salmeterol 100/50 14 Dose Inh INH 08/11/24 22:44 1 puff BIDRT ZI Administration Sulfasalazine 1,000 mg 07/13/24 21:00 07/14/24 08:09 Sulfasalazine 500 Mg Tablet PO 08/12/24 20:59 1,000 mg BID ZI Administration Plan Assessment Ms. Welch is a 79-year-old female with history of COPD (3L home oxygen), Crohn's disease, hypertension and dizziness who presented to [facility] on 07/12/2024 with chief complaint of ground-level fall after her legs gave out on her . Patient admitted for further workup for left-sided weakness, CVA workup. 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 Stroke recrudescence #Status post ground-level fall Patient endorsed that her legs gave out, currently complains of left-sided weakness, has no history of stroke or residual deficits. Patient independent in ADLs denies using any walker/cane. Patient denies seizure-like activity, loss of consciousness, did endorse hitting head. On physical exam left-sided weakness noted, teleneuro was consulted in ED NIHSS 4. MRI shows old infarct left cerebral hemisphere, however no acute mass effect, hemorrhage or ischemia Patient did deny having a stroke before, however TIA may still be in the differential Patient may also be experiencing stroke recrudescence as patient is having infection and electrolyte abnormalities Considering patient's weakness is one-sided this may not all be due to electrolyte abnormalities including hypokalemia TSH 4.94, T41.18, total cholesterol 99, LDL 33 A1c 5.5 Speech therapy recommending dysphagia 3 diet PT recommending S explanation upon discharge recommendations NF, however patient does not want custodial facility will want home health Neuro recommending 325 ASA, however, we will continue with ASA 81 for antiplatelet effect, however, we will recommend to follow up with Neurology upon d/c Plan: -Continue aspirin 81 ?Continue with Lipitor 40 mg ?Follow-up echo with bubble study -Consulted neurology, appreciate recommendations -Bedside nurse swallow screen -Neurochecks every 4 hours -Head of bed 30 degrees -Tylenol as needed #Symptomatic hypokalemia, improving #Electrolyte abnormalities #Hypophosphatemia Patient does endorse poor oral intake Given 280 mill equivalents of potassium within the past 24 hours Most recent renal panel showed potassium of 4.4 Hyperkalemia most likely related to uncontrolled Crohn's disease and GI losses Plan: ? Continue to encourage oral intake ? Follow-up with CMP #Crohn's disease flareup # Hx of Crohn's disease Patient reports history of Crohn's disease, reports being diagnosed in 2006, currently not on any medications, does not follow GI specialist currently Reports average 8 bowel movements every day, small, no blood. Seen by GI, ordered ankle protein history n.p.o. and additional studies Recommends patient to have medicines in addition to have another colonoscopy at some point Plan: ?Consulted GI, appreciate recommendations ?Follow-up stool culture, fecal calprotectin, stool WBC ?Follow-up C. difficile ?Continue with sulfasalazine 500 mg twice daily ?Continue with Solu-Medrol 40 mg IV twice daily ?Follow-up with immunological markers # Urinary tract infection #?DAVID on CKD # Leukocytosis # Lactic acidosis Patient complains of urinary discomfort, increased frequency On admission creatinine 1.4, GFR 38, lactate 3.0. UA significant for nitrate positive, leukocyte esterase positive, bacteria rare. Cr 1.0today Encourage oral intake Initial urine culture shows GNR Plan: -Continue with IV ceftriaxone daily -Follow up urine culture #Hx of COPD Patient has extensive history of smoking in the past, was diagnosed with COPD. Patient on 3 L oxygen at home Plan: -Continue Advair twice daily -Supplemental oxygen as needed -DuoNeb every 4 hours as needed #Hypertension Patient has history of hypertension, on amlodipine at home Plan: -Will resume home blood pressure medicines after first 24 hours #Health Maintenance Disposition: Telemetry DVT prophylaxis: Heparin every 12 hours GI prophylaxis: None indicated at this time Diet: Cardiac CODE STATUS:DNR/DNI Patient seen and care discussed with my senior resident, Dr. Kerns , and my attending physician, Dr. Santos Pollack, PGY-1
[2024-07-14 16:04] LABS: Clostridium Difficile PCR Negative (Negative)
--- NOTE | 2024-07-14 21:06 | ESPR_ITS ---
Documentation for date of: 07/14/24 Subjective Subjective Interval history: Patient evaluated Workup for the inflammatory bowel disease pending Case discussed with the internal medicine team Patient can be discharged home to be followed by me as an outpatient She will need a colonoscopy as an outpatient with biopsies to make the proper diagnosis with intubation of the terminal ileum and biopsy from that lesion as well Exam Vital Signs Temp Pulse Resp BP Pulse Ox O2 Del Method O2 Flow Rate 97.1 F 83 18 144/73 H 95 Nasal Cannula 3 07/14/24 20:00 07/14/24 20:00 07/14/24 20:00 07/14/24 20:00 07/14/24 20:00 07/14/24 20:00 07/14/24 20:00 Objective Labs 07/14/24 02:35 07/14/24 02:35 Labs: Laboratory Results - last 24 hr 07/13/24 07/14/24 20:40 02:35 WBC 11.5 H RBC 4.73 Hgb 15.2 Hct 41.5 MCV 88 MCH 32.1 MCHC 36.6 RDW Std Deviation 52.7 H Plt Count 337 D Neut % (Auto) 89 H Lymph % (Auto) 10 [place] % (Auto) 1 Eos % (Auto) 0 Baso % (Auto) 1 Neut # (Auto) 10.2 H Lymph # (Auto) 1.1 [place] # (Auto) 0.1 Eos # (Auto) 0.0 Baso # (Auto) 0.1 Immature Gran # (Auto) 0.03 H Absolute Nucleated RBC 0.00 Immature Gran % 0 Nucleated RBC % 0 ESR 38 H Sodium 142 Potassium 4.4 D Chloride 110 H Carbon Dioxide 19.4 L Anion Gap 13 BUN < 5 L Creatinine 1.0 Estim Creat Clear Calc 41.8 L eGFR 57 L BUN/Creatinine Ratio 5 L Glucose 135 H Calculated Osmolality 282 Calcium 7.6 L Corrected Calcium 8.1 L Phosphorus 3.6 Magnesium 2.0 Total Bilirubin 0.4 AST 30 ALT 11 Alkaline Phosphatase 118 H C-Reactive Prot, Quant 3.2 H Total Protein 6.9 Albumin 3.4 Globulin 3.5 Albumin/Globulin Ratio 1.0 L Stool for White Cells None Seen Stl C. diff Tox B Gene Negative Impressions Impression: # Diarrhea secondary to underlying inflammatory bowel disease Continue current management Assessment & Plan A&P Narrative # Chronic persistent diarrhea most likely acute exacerbation of the underlying inflammatory process as per history although no imaging studies available Suggestions ANCA antibody Stool culture and sensitivity WBC stain and fecal calprotectin CRP Sulfasalazine 500 mg 2 tablets twice daily gradually increase to 8 tablets a day Solu-Medrol 40 mg IV push every 12 till the stool cultures are back Should have a colonoscopy examination prior to discharge Will follow the patient Other medical problems include # COPD on 3 L nasal cannula # Essential hypertension # Left sided motor weakness new onset # Gross electrolyte abnormalities Thank you very much for the opportunity to participate in the care of this patient Time Spent With Patient Time: Total time spent is greater than 50% in coordination of care (as documented) at patient's floor/unit and/or counseling patient:
[2024-07-14] MEDS: cefTRIAXone/D5w 1gm IV premix 50 ML IV (22:03)
[2024-07-14] MEDS: ATORVASTATIN CALCIUM 20 MG TABLET 40 MG PO (22:04)
[2024-07-14] MEDS: LACTOBACILLUS RHAMNOSUS 1 CAP PO (22:04)
--- NOTE | 2024-07-14 23:50 | ESPR_ITS ---
Documentation for date of: 07/14/24 Subjective Subjective Interval history: Patient was seen earlier today. No new symptoms reported. Able to move both upper and lower extremities. Exam - Neurology Vital Signs Temp Pulse Resp BP Pulse Ox O2 Del Method O2 Flow Rate 97.1 F 83 18 144/73 H 95 Nasal Cannula 3 07/14/24 20:00 07/14/24 20:00 07/14/24 20:00 07/14/24 20:00 07/14/24 20:00 07/14/24 20:00 07/14/24 20:00 Narrative Exam GENERAL APPEARANCE: Well hydrated, well-nourished in no acute distress. HEENT: Normocephalic, atraumatic, extraocular movements intact. Pupils: Equal reacting to light and accommodation NECK: Supple, no JVD or bruits. CARDIOVASULAR: Heart: S1, S2 heard, regular without S3-S4 or murmur no rubs or gallops. LUNGS/CHEST: Clear to auscultation bilaterally. No rails, rhonchi, or wheezing. Normal inspection. ABDOMEN: Soft, nontender, with normal bowel sounds. No pulsatile masses. No rebound, rigidity, or guarding. Normal inspection and palpation. EXTREMITIES: Normal inspection and palpation. No edema, clubbing or cyanosis. SKIN: Warm and dry without rashes. Normal inspection. MUSCULOSKELETAL: No cervical, thoracic, lumbar or midline bony tenderness. Normal inspection. NEURO: Alert, awake and oriented x3. Cranial nerves: II through XII grossly intact. Speech and language: Normal with no dysarthria or dysphasia. Motor system: Tone and bulk: Normal: Strength: 5 out of 5 in all 4 extremities; No pronator drift noted. Deep tendon reflexes: 2+ bilaterally symmetrical. Plantar reflex: Downgoing bilaterally. Sensory system: Intact to all modalities of sensation bilaterally. Coordination: Intact to [id number] and qtko-qclv-ayng test bilaterally. No ataxia, no dysmetria, or dysdiadochokinesia noted. No intention tremors noted. Gait: Walked with the physical therapist. no signs of meningeal irritation noted. PSYCHIATRIC: Normal mood and affect. Objective Labs 07/14/24 02:35 07/14/24 02:35 Labs: Laboratory Results - last 24 hr 07/13/24 07/14/24 20:40 02:35 WBC 11.5 H RBC 4.73 Hgb 15.2 Hct 41.5 MCV 88 MCH 32.1 MCHC 36.6 RDW Std Deviation 52.7 H Plt Count 337 D Neut % (Auto) 89 H Lymph % (Auto) 10 [place] % (Auto) 1 Eos % (Auto) 0 Baso % (Auto) 1 Neut # (Auto) 10.2 H Lymph # (Auto) 1.1 [place] # (Auto) 0.1 Eos # (Auto) 0.0 Baso # (Auto) 0.1 Immature Gran # (Auto) 0.03 H Absolute Nucleated RBC 0.00 Immature Gran % 0 Nucleated RBC % 0 ESR 38 H Sodium 142 Potassium 4.4 D Chloride 110 H Carbon Dioxide 19.4 L Anion Gap 13 BUN < 5 L Creatinine 1.0 Estim Creat Clear Calc 41.8 L eGFR 57 L BUN/Creatinine Ratio 5 L Glucose 135 H Calculated Osmolality 282 Calcium 7.6 L Corrected Calcium 8.1 L Phosphorus 3.6 Magnesium 2.0 Total Bilirubin 0.4 AST 30 ALT 11 Alkaline Phosphatase 118 H C-Reactive Prot, Quant 3.2 H Total Protein 6.9 Albumin 3.4 Globulin 3.5 Albumin/Globulin Ratio 1.0 L Stl C. diff Tox B Gene Negative Assessment & Plan Assessment and plan (1) Left-sided weakness: Status: Acute Assessment and plan: Which led to a fall now resolved, Reassurance given to the patient regarding the negative workup including CT CT angiogram and MRI brain. Recommend physical therapy evaluation for ambulation safety. 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 Continue with aspirin.
[2024-07-15] VITALS (7 sets, daily range): BP systolic 109–145; BP diastolic 69–93; PULSE 72–110; RESP 17–20; TEMP 36.1–36.5; O2SAT 94–97
[2024-07-15 06:07] LABS: Basophils % (Auto) 0 % (0-2.5); Eosinophils % (Auto) 0 % (0-10); Hematocrit 37.5 % (36.0-46.0); Hemoglobin 13.3 g/dL (12.0-16.0); Immature Granulocytes % (Auto) 1 % (0-0); Immature Granulocytes Auto 0.07 Thou/mm3 (0.00-0.00); Lymphocytes % (Auto) 8 % (10-50); Mean Corpuscular HGB Conc 35.5 g/dl (31.0-37.0); Mean Corpuscular Hemoglobin 32.3 pg (25.0-35.0); Mean Corpuscular Volume 91 fL (80-100); Monocytes # (Auto) 0.3 Thou/mm3 (0.0-0.8); Monocytes % (Auto) 2 % (0-12); Neutrophils # (Auto) 11.7 Thou/mm3 (1.8-7.7); Neutrophils % (Auto) 89 % (37-80); Nucleated Red Blood Cell % 0 /100 WBC (0); Platelet Count 424 Thou/mm3 (140-440); RDW Standard Deviation 54.1 fL (36.4-46.3); Red Blood Count 4.12 Miln/mm3 (4.00-5.20); White Blood Count 13.1 Thou/mm3 (3.6-11.0)
[2024-07-15] MEDS: FLUTICASONE/SALMETEROL 100/50 14 DOSE INH 1 PUFF INH (06:28)
[2024-07-15 07:05] LABS: Alanine Aminotransferase 11 U/L (10-49); Albumin, Serum 3.2 gm/dL (3.4-4.8); Alkaline Phosphatase 101 U/L (46-116); Anion Gap 10 (7-16); Aspartate Amino Transferase 26 U/L (0-34); BUN/Creatinine Ratio 6 Ratio (12-20); Bilirubin,Total 0.3 mg/dL (0.3-1.2); Blood Urea Nitrogen < 5 mg/dL (9-23); Calcium 7.4 mg/dL (8.3-10.6); Carbon Dioxide 23.9 mMol/L (20.0-31.0); Chloride 104 mMol/L (98-107); Creatinine (Component) 0.8 mg/dL (0.6-1.3); Estimated Creatinine Clearance 52.3 mL/min (>60); Globulin 3.3 gm/dL (2.3-3.5); Glucose 139 mg/dL (74-106); Magnesium 1.8 mg/dL (1.6-2.6); Osmolality,Calculated 274 (275-295); Phosphorous 4.1 mg/dL (2.4-5.1); Potassium 3.2 mMol/L (3.4-5.1); Sodium 138 mMol/L (136-145); Total Protein 6.5 gm/dL (5.7-8.2); eGFR > 60 See Note
--- NOTE | 2024-07-15 09:17 | PC.SS ---
Update: Plan is to d/c patient home today.
[2024-07-15] MEDS: ASPIRIN EC 81 MG TABEC PO (09:34)
[2024-07-15] MEDS: sulfaSALAzine 500 MG TABLET 1000 MG PO (09:34)
[2024-07-15] MEDS: LACTOBACILLUS RHAMNOSUS 1 CAP PO (09:35)
[2024-07-15] MEDS: HEPARIN SOD INJ 5000 UNIT/ML VIAL SC (09:35)
--- NOTE | 2024-07-15 09:39 | PC.SS ---
PRICING MANAGER conducted bedside contact with the patient conduct initial assessment and to discuss discharge planning.? Patient confirmed demographic information.? Patient resides at home with spouse, Johnathon Welch .? Patient utilizes a walker to assist with ambulation.? Patient utilizes home oxygen.? Patient requires assistance with ADL?s.? Patient identified spouse, Johnathon Welch; as medical surrogate decision maker.? Patient is not aligned with PCP services.? Patient declined scheduled appointment to [facility].? Patient requested information to [facility] to arrange own appointment.? PRICING MANAGER provided patient with information.? Patient is aligned with Dr. Benton for specialty services.? Patient utilizes [facility] pharmacy for medication services. ?Patient is aligned with [facility] hospice services, [place].? Patient would like to resume services upon discharge.? Plan is for the patient to return home at the time of discharge.? Spouse will provide transportation on behalf of the patient. No discharge needs identified by the patient.? No further intervention required at this time, social work faculty member will be available to address any further concerns.? Next of Kin: Johnathon Welch D/C Plan: Home
--- NOTE | 2024-07-15 10:06 | ESDS_ITS ---
Planned Discharge Date 07/15/24 DS: Providers Provider Date of admission: 07/12/24 22:19 Primary care physician: Physician No Primary/Family Admitting Provider: Andrew Jarrett MD Attending Provider on Admission: Bill Jefferson MD Consults: 07/12/24 22:29 Consult to Neurology / Tele-Neurology Urgent Comment: Stroke Workup Consulting Provider: Shawn Pettit Referral Physical Therapy Routine Comment: Left sided weakness Physician Instructions: Referral Speech Therapy Urgent Comment: Stroke Workup 07/12/24 22:35 Consult to Gastroenterology Stat Comment: Crohn's Disease Consulting Provider: Lisa Benton 07/13/24 03:38 Referral Registered Dietitian Routine Comment: Health Equity Referral - Knowledge Deficit Routine Comment: Positive screening for knowledge deficit needs. Attending Provider on DC: Bill Jeffesron MD Discharging Provider: Bill Jefferson MD DS: Diagnosis Problem List Completed Was Problem List Reviewed/Reconciled?: Yes Hospital Course Hospital Course Hospital course: Ms. Welch is a 79-year-old female with history of COPD (3L home oxygen), Crohn's disease (was not on any medicines at the time), hypertension, and prev ious CVA who was admitted for L sided weakness secondary to symptomatic hypokalemia which was precipitated by GI losses due to Crohn's flareup. Pt reports that she had two episodes in which she felt weak and could not get up on her own, in which one episode she had a fall. She came to the ED with a BP of 119/72, pulse 94, respiratory rate 16, temp 97.6, O2 sat 92 on 2 L nasal cannula. She was worked up and was found to have a WBC 11.8, neutrophil 8.5 sodium 141, potassium 2.1, bicarb 18.7, creatinine 1.4, GFR 38, glucose 124, lactate 3.0, calcium 8, alk phos 117, albumin 3.3, globulin 3.8 UA significant for nitrate positive, leukocyte esterase positive, bacteria rare. Imaging was done for her as there was concern for TBI and CT cervical spine significant for heavy carotid vascular calcification, chest x-ray negative CT head negative CTA head and neck negative for large vessel occlusion. She was given aspirin 81 mg x 1, ceftriaxone x 1 in ED. teleneuro consulted in ED, stroke alert was called. Patient was repleted with potassium orally 80 mEq at the time. Teleneuro seen gave NIHSS score of 4, and recommended admission for further work up. While on the floors, pt had further workup. Brain MRI was negative for acute hemorrhage mass effect or midline shift, no acute infarct, however old infarct of left cerebral hemisphere. Patient denies a history of old stroke. While on the darrell ors, pt repeated to have hypokalemia, as low as 1.9, and was repleted throughout the admission. She had about 300 mEq of potassium repleted as well. In addition, pt did confirm having a hx of Crohn's disease, but was not taking any medicine for it. GI was consulted and recommended patient to be started on steroids (methylprednisolone 40 mg IV), in addition to sulfasalazine 500 mg twice daily in addition to immune workup. Patient was having a number of bowel movements in the hospital, C. difficile was tested and was negative. We are comfortable as patient's weakness had improved in addition to potassium levels being repleted to a normal level for her to follow-up with GI outpatient, with Dr. Benton, and we will be giving her medicines upon discharge. She will also need to follow-up with PCP for further possible follow-up management. She was also saying that she has been on hospice for 3 years, and will continue with that. We will also discharge patient with potassium pills at this time as we are concerned for possible persistent hypokalemia with GI losses. She did endorse a hx of having poor oral intake for some time and really only eats cottage cheese and chicken broth, and for this reason we will also give her probiotics and folic acid upon d/c. Follow-up with PCP within a week Follow-up with GI, Dr. 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 Stroke recrudescence #Status post ground-level fall #Symptomatic hypokalemia, resolved #Electrolyte abnormalities #Hypophosphatemia #Crohn's disease flareup # Hx of Crohn's disease # Urinary tract infection #?DAVID on CKD # Leukocytosis # Lactic acidosis #Hx of COPD #Hypertension Patient seen and care discussed with my senior resident, Dr. Kerns , and my attending physician, Dr. Ronny Pollack, PGY-1 Time Spent with Patient Time attestation: Total time spent providing and/or coordinating discharge services: Time spent: Greater than 30 minutes Exam Vital Signs Temp Pulse Resp BP Pulse Ox O2 Del Method O2 Flow Rate 97.0 F 74 20 126/69 94 L Nasal Cannula 3 07/15/24 08:00 07/15/24 08:00 07/15/24 08:00 07/15/24 08:00 07/15/24 08:00 07/15/24 08:00 07/15/24 08:00 Narrative Exam General: AAOx3, NAD, lying down in bed, pt appears to have some hair thinning, looks older than she is, anorexic HEENT: Dry mucous membranes, conjunctiva clear, EOMI, PERRLA pupillary reflex intact bilaterally Cardiovascular: S1, S2, radial pulses +2 bilat, RRR Pulmonary: + wheezing heard in both lung [place], on 2L NC GI: No tenderness to light or deep palpitation, no guarding, rigidity, rebound tenderness or distension Extremities: No presence of trace or pitting edema in lower extremities bilaterally, dorsalis pedis pulses +2 bilaterally Neuro: AAOx3, no focal or motor deficits at this time, Psych: Cooperative Discharge Plan Plan Patient Disposition: Home w/HOSPICE Patient condition on transfer: Stable Care Plan Goals: Start taking aspirin, atorvastatin, folic acid, and potassium 1 tab daily. Start taking sulfasalazine 1 tab every 6 hours. Take prednisone 5 mg as written in instructions Take cephalexin 500 mg twice daily for 4 days. Follow up with PCP and GI within 2 weeks. Prescriptions/Referrals Prescriptions/Med Rec: New potassium chloride 10 mEq tablet extended release 10 meq PO QDAY Qty: 30 0RF cephalexin 500 mg capsule 500 mg PO BID Qty: 8 0RF sulfasalazine 500 mg tablet 0.5 g PO Q6H Qty: 120 0RF Rx Instructions: Take up to four tablets a day, give with food (meal/snack) aspirin [Adult Aspirin Regimen] 81 mg tablet,delayed release (DR/EC) 81 mg PO QDAY Qty: 30 0RF atorvastatin [Lipitor] 40 mg tablet 40 mg PO QPM Qty: 30 0RF fluticasone propion-salmeterol [Advair HFA] 115-21 mcg/actuation HFA aerosol inhaler 2 puff inhalation BID Qty: 12 0RF folic acid 1 mg tablet 1 mg PO QDAY Qty: 30 0RF prednisone 5 mg tablet See Taper PO TID Qty: 91 0RF Taper: Prednisone Taper 30 mg TWICE A DAY for 7 Days and 0 Hour 20 mg DAILY for 7 Days and 0 Hour 10 mg DAILY for 7 Days and 0 Hour 5 mg DAILY for 7 Days and 0 Hour Rx Instructions: Take 3 tablets by mouth twice a day for the first week Take 2 tablets by mouth twice a day for the second week Take 1 tablet by mouth twice a day by the third week Take 1 tablet once a day for for the last week Continued albuterol sulfate 2.5 mg /3 mL (0.083 %) solution for nebulization 2.5 mg inhalation Q4H PRN (Reason: shortness of breath or wheezing) Qty: 90 2RF Discontinued doxycycline monohydrate 100 mg capsule 100 mg PO BID Qty: 20 0RF prednisone 50 mg tablet 50 mg PO QDAY Qty: 5 0RF Referrals: No Primary/Family,Physician [Primary Care Provider] - Patient/Caregiver Discharge Instructions Print Language: Macedonian Stand Alone Forms: [employer] Award Info., Patient Portal Info Letter Discharge Order Discharge Orders: Discharge (Routine); Ordered 07/15/24 Ordered By: Hank Pollack Quality Discharge Quality Measures VTE prophylaxis (Heparin subq BID ) Attestestation MD Attestation I reviewed labs, imaging, EKG, home medications and prior available records. Face to face evaluation was performed by me. I have personally examined the patient and discussed assessment and plan with the IM team. I reviewed the resident note and agree with the plan with exceptions as below. CVA symptoms: MRI showed no acute CVA but old CVA. Continue aspirin and atorvastatin. Flare of Crohn's disease: Explains her chronic diarrhea. Symptoms slightly improved. Discussed with GI: Will discharge on sulfasalazine and prednisone taper over 3 weeks. Outpatient follow-up with GI. Continue folic acid. Hypokalemia: Ordered potassium chloride given the hypokalemia from chronic diarrhea. Monitor BMP in 1 week. DAVID: Resolved with IV fluids. Monitor kidney function as outpatient COPD without exacerbation. Continue home inhalers. Avoid tobacco use. Leukocytosis: Likely reactive in the setting of corticosteroid use. Monitor CBC as outpatient Time spent is 40 minutes. More than 50% of the time was spent on patient education and coordination of care.
[2024-07-15] MEDS: POTASSIUM CHLORIDE 20 mEq TABCR 40 MEQ PO (10:17)
--- NOTE | 2024-07-15 13:11 | PD.IMPROG ---
Documentation for date of: 07/15/24 Subjective Subjective Interval history: Case discussed with internal medicine team okay to discharge patient home on sulfasalazine and folic acid and prednisone taper in fascia Exam Vital Signs Temp Pulse Resp BP Pulse Ox O2 Del Method O2 Flow Rate 97.0 F 74 20 126/69 94 L Nasal Cannula 3 07/15/24 08:00 07/15/24 08:00 07/15/24 08:00 07/15/24 08:00 07/15/24 08:00 07/15/24 08:00 07/15/24 08:00 Objective Labs 07/15/24 04:50 07/15/24 04:50 Labs: Laboratory Results - last 24 hr 07/13/24 07/15/24 20:40 04:50 WBC 13.1 H RBC 4.12 Hgb 13.3 Hct 37.5 MCV 91 MCH 32.3 MCHC 35.5 RDW Std Deviation 54.1 H Plt Count 424 D Neut % (Auto) 89 H Lymph % (Auto) 8 L [place] % (Auto) 2 Eos % (Auto) 0 Baso % (Auto) 0 Neut # (Auto) 11.7 H Lymph # (Auto) 1.0 [place] # (Auto) 0.3 Eos # (Auto) 0.0 Baso # (Auto) 0.0 Immature Gran # (Auto) 0.07 H Absolute Nucleated RBC 0.00 Immature Gran % 1 H Nucleated RBC % 0 Sodium 138 Potassium 3.2 L D Chloride 104 Carbon Dioxide 23.9 Anion Gap 10 BUN < 5 L Creatinine 0.8 Estim Creat Clear Calc 52.3 L eGFR > 60 BUN/Creatinine Ratio 6 L Glucose 139 H Calculated Osmolality 274 L Calcium 7.4 L Corrected Calcium 8.0 L Phosphorus 4.1 Magnesium 1.8 Total Bilirubin 0.3 AST 26 ALT 11 Alkaline Phosphatase 101 Total Protein 6.5 Albumin 3.2 L Globulin 3.3 Albumin/Globulin Ratio 1.0 L Stl C. diff Tox B Gene Negative Impressions Impression: Inflammatory bowel disease patient to be discharged home to be followed by me as an outpatient on sulfasalazine folic acid and prednisone Assessment & Plan A&P Narrative # Chronic persistent diarrhea most likely acute exacerbation of the underlying inflammatory process as per history although no imaging studies available Suggestions ANCA antibody Stool culture and sensitivity WBC stain and fecal calprotectin CRP Sulfasalazine 500 mg 2 tablets twice daily gradually increase to 8 tablets a day Solu-Medrol 40 mg IV push every 12 till the stool cultures are back Should have a colonoscopy examination prior to discharge Will follow the patient Other medical problems include # COPD on 3 L nasal cannula # Essential hypertension # Left sided motor weakness new onset # Gross electrolyte abnormalities Thank you very much for the opportunity to participate in the care of this patient Time Spent With Patient Time: Total time spent is greater than 50% in coordination of care (as documented) at patient's floor/unit and/or counseling patient:
--- NOTE | 2024-07-16 11:03 | PC.SS ---
Updated clinicals submitted via XM Fax to [facility] .
== END 2024-07-15 14:55 | disposition hospice, home (50) | DRG 948 ==
LOC: SERX 21:29 → SERHOLD 22:47 → S2NX 07-13 03:07
PROVIDERS: Emergency Medicine; Internal Medicine; Specialist; Student in an Organized Health Care Education/Training Program; Admitting Provider Student in an Organized Health Care Education/Training Program; Emergency Provider Emergency Medicine; Visit Provider Student in an Organized Health Care Education/Training Program
DX: R53.1 Weakness (principal); K50.90 Crohn's disease, unspecified, without complications; E87.20 Acidosis, unspecified; N39.0 Urinary tract infection, site not specified; N17.9 Acute kidney failure, unspecified; E87.6 Hypokalemia; E83.39 Other disorders of phosphorus metabolism; S09.90XA Unspecified injury of head, initial encounter; J44.89 Other specified chronic obstructive pulmonary disease; N18.9 Chronic kidney disease, unspecified; E83.42 Hypomagnesemia; I12.9 Hypertensive chronic kidney disease with stage 1 through stage 4 chronic kidney disease, or unspecified chronic kidney disease; M54.2 Cervicalgia; Z99.81 Dependence on supplemental oxygen; Z86.73 Personal history of transient ischemic attack (TIA), and cerebral infarction without residual deficits; Z87.891 Personal history of nicotine dependence; W18.30XA Fall on same level, unspecified, initial encounter; Z66 Do not resuscitate; Z87.440 Personal history of urinary (tract) infections; E83.51 Hypocalcemia
CPT/HCPCS: 36415; 70450; 70496; 70498; 70544; 71045; 72125; 80053; 80061; 80069; 80074; 81001; 83036; 83605; 83735; 83993; 84100; 84132; 84439; 84443; 84484; 85025; 85610; 85652; 85730; 86021; 86036; 86140; 87015; 87045; 87046; 87077; 87086; 87186; 87205; 87329; 87493; 87899; 92610; 94640; 94664; 94762; 97162; A4649; A9270; J0696; J1643; J2919; J3475; J7040; J7120; Q9967